=== PATIENT | female | born 1975 | race Caucasian/White ===

== ENCOUNTER 2016-06-22 09:48 | Inpatient (IN) | payer OTHER ==
[~2016-06-22] VITALS: Ht 165.1 cm; Wt 48.1 kg
[2016-06-22 14:10] VITALS: BP 97/62
[2016-06-22] MEDS ORDERED: POLYETHYLENE GLYCOL 17 GM PACKET PO PRN (15:30)
[2016-06-22] MEDS ORDERED: PLEASE ENTER ALLERGIES MC SCH ×2 (15:30)
[2016-06-22] MEDS ORDERED: PLEASE ENTER HEIGHT AND WEIGHT MC SCH (15:30)
[2016-06-22] MEDS ORDERED: ONDANSETRON 2MG/ML, 2ML IVP PRN (15:30)
[2016-06-22] MEDS: morphine SULFATE 10 MG/ML, 1ML IVPush PRN ×3 (15:43→22:53)
[2016-06-22] MEDS ORDERED: GABA300C10 PO (15:52)
[2016-06-22] MEDS ORDERED: FURO40TA6 PO (15:55)
[2016-06-22] MEDS ORDERED: AMIO100T4 PO (15:55)
[2016-06-22] MEDS ORDERED: POTA10TA PO (16:04)
[2016-06-22] MEDS ORDERED: SPIR50TA PO (16:04)
[2016-06-22] MEDS ORDERED: TOPI50TA35 PO (16:05)
[2016-06-22] MEDS ORDERED: MAGN400T26 PO (16:06)
[2016-06-22] MEDS ORDERED: OMEP-110 PO (16:07)
[2016-06-22] MEDS ORDERED: OXYC5CAP4 PO (16:10)
[2016-06-22 18:54] LABS: HEMOGLOBIN 10.1 g/dL (11.7-16.4)
[2016-06-22 19:24] VITALS: BP 91/52
[2016-06-22] MEDS: NS + 20MEQ KCL 1,000 ML IV SCH (19:36)
[2016-06-22] MEDS: MAGNESIUM OXIDE 400 MG TABLET PO SCH (21:00)
[2016-06-22] MEDS: POTASSIUM CHLORIDE 20 MEQ TAB.ER.PRT PO SCH (21:00)
[2016-06-22] MEDS: GABAPENTIN 300 MG CAPSULE PO SCH ×2 (21:00→22:53)
[2016-06-22] MEDS: AMIODARONE 200 MG TABLET PO SCH ×2 (21:00→22:53)
[2016-06-22] MEDS: OMEPRAZOLE 20 MG CAPSULE.DR PO SCH ×2 (21:00→22:54)
[2016-06-22] MEDS: FUROSEMIDE 40 MG TABLET PO SCH (21:00)
[2016-06-22] MEDS: SPIRONOLACTONE 50 MG TABLET PO SCH (21:00)
[2016-06-23 01:43] VITALS: BP 90/51
[2016-06-23] MEDS: morphine SULFATE 10 MG/ML, 1ML IVPush PRN ×6 (04:15→21:41)
[2016-06-23 05:35] LABS: ASPARTATE AMINO TRANSFERASE 19 U/L (15-37); BLOOD UREA NITROGEN 11 mg/dL (7-18)
[2016-06-23] MEDS: NS + 20MEQ KCL 1,000 ML IV SCH ×2 (08:36→18:00)
[2016-06-23 08:42] VITALS: BP 94/56
[2016-06-23] MEDS ORDERED: NS + 20MEQ KCL 1,000 ML IV SCH (09:00)
[2016-06-23] MEDS: GABAPENTIN 300 MG CAPSULE PO SCH ×3 (09:14→21:40)
[2016-06-23] MEDS: POTASSIUM CHLORIDE 20 MEQ TAB.ER.PRT PO SCH ×2 (09:14→21:40)
[2016-06-23] MEDS: TOPIRAMATE 25 MG TABLET PO SCH (09:14)
[2016-06-23] MEDS: SENNA/DOCUSATE TABLET PO SCH (09:14)
[2016-06-23] MEDS: OMEPRAZOLE 20 MG CAPSULE.DR PO SCH ×2 (09:14→21:40)
[2016-06-23] MEDS: MAGNESIUM OXIDE 400 MG TABLET PO SCH ×2 (09:15→21:40)
[2016-06-23 14:00] VITALS: BP 94/53
[2016-06-23 18:55] VITALS: BP 92/55
[2016-06-24 01:29] VITALS: BP 93/56
[2016-06-24] MEDS: morphine SULFATE 10 MG/ML, 1ML IVPush PRN ×7 (01:47→20:37)
[2016-06-24 05:08] LABS: HEMOGLOBIN 9.5 g/dL (11.7-16.4)
[2016-06-24 05:20] LABS: BLOOD UREA NITROGEN 8 mg/dL (7-18)
[2016-06-24] MEDS: NS + 20MEQ KCL 1,000 ML IV SCH (06:26)
[2016-06-24 07:00] VITALS: BP 94/52
[2016-06-24] MEDS: MAGNESIUM OXIDE 400 MG TABLET PO SCH ×2 (08:55→20:23)
[2016-06-24] MEDS: GABAPENTIN 300 MG CAPSULE PO SCH ×3 (08:55→20:23)
[2016-06-24] MEDS: POTASSIUM CHLORIDE 20 MEQ TAB.ER.PRT PO SCH ×2 (08:56→20:23)
[2016-06-24] MEDS: OMEPRAZOLE 20 MG CAPSULE.DR PO SCH ×2 (08:56→20:23)
[2016-06-24] MEDS: SENNA/DOCUSATE TABLET PO SCH (08:56)
[2016-06-24] MEDS: TOPIRAMATE 25 MG TABLET PO SCH (08:56)
[2016-06-24 13:28] VITALS: BP 92/52
[2016-06-24 18:26] VITALS: BP 92/54
[2016-06-25] MEDS: morphine SULFATE 10 MG/ML, 1ML IVPush PRN ×7 (00:07→21:51)
[2016-06-25 01:58] VITALS: BP 93/57
[2016-06-25 05:23] LABS: HEMOGLOBIN 9.7 g/dL (11.7-16.4)
[2016-06-25 05:40] LABS: BLOOD UREA NITROGEN 5 mg/dL (7-18)
[2016-06-25 07:03] VITALS: BP 91/54
[2016-06-25] MEDS: GABAPENTIN 300 MG CAPSULE PO SCH ×3 (09:39→21:37)
[2016-06-25] MEDS: MAGNESIUM OXIDE 400 MG TABLET PO SCH ×2 (09:39→21:37)
[2016-06-25] MEDS: SENNA/DOCUSATE TABLET PO SCH (09:39)
[2016-06-25] MEDS: OMEPRAZOLE 20 MG CAPSULE.DR PO SCH ×2 (09:39→21:37)
[2016-06-25] MEDS: TOPIRAMATE 25 MG TABLET PO SCH (09:39)
[2016-06-25] MEDS: POTASSIUM CHLORIDE 20 MEQ TAB.ER.PRT PO SCH (09:39)
[2016-06-25] MEDS ORDERED: SODIUM CHLORIDE 0.9% 1,000 ML IV SCH (11:30)
[2016-06-25 12:16] VITALS: BP 92/57
[2016-06-25] MEDS ORDERED: DEXTROSE 50%, 50ML SYRINGE IVPush PRN (13:30)
[2016-06-25] MEDS ORDERED: DEXTROSE 4 GM TAB.CHEW PO PRN (13:30)
[2016-06-25] MEDS ORDERED: GLUCAGON 1 MG IM PRN (13:30)
[2016-06-25] MEDS: POTASSIUM CHLORIDE 10 MEQ in D5%-0.45% NACL 1,000 ML IV SCH (15:45)
[2016-06-25 19:35] VITALS: BP 91/51
[2016-06-25] MEDS: SODIUM CHLORIDE FLUSH 10ML SYR IVF SCH (21:37)
[2016-06-26] MEDS: morphine SULFATE 10 MG/ML, 1ML IVPush PRN ×7 (01:22→21:56)
[2016-06-26] MEDS: POTASSIUM CHLORIDE 10 MEQ in D5%-0.45% NACL 1,000 ML IV SCH ×3 (01:23→21:56)
[2016-06-26 01:38] VITALS: BP 102/55
[2016-06-26 05:34] LABS: HEMOGLOBIN 9.8 g/dL (11.7-16.4)
[2016-06-26 06:22] LABS: BLOOD UREA NITROGEN 5 mg/dL (7-18)
[2016-06-26 06:53] VITALS: BP 89/56
[2016-06-26] MEDS: SENNA/DOCUSATE TABLET PO SCH (08:20)
[2016-06-26] MEDS: MAGNESIUM OXIDE 400 MG TABLET PO SCH ×2 (08:20→21:56)
[2016-06-26] MEDS: TOPIRAMATE 25 MG TABLET PO SCH (08:20)
[2016-06-26] MEDS: GABAPENTIN 300 MG CAPSULE PO SCH ×3 (08:20→21:56)
[2016-06-26] MEDS: OMEPRAZOLE 20 MG CAPSULE.DR PO SCH ×2 (08:20→21:56)
[2016-06-26] MEDS: SODIUM CHLORIDE FLUSH 10ML SYR IVF SCH ×2 (08:24→21:56)
[2016-06-26 12:30] VITALS: BP 86/50
[2016-06-26] MEDS ORDERED: VISIPAQUE 270 MG/ML, 50ML BOTTLE ONE (13:15)
[2016-06-26] MEDS ORDERED: TPN PER PHARMACY MC PRN (18:30)
[2016-06-26] MEDS: METOCLOPRAMIDE 5 MG/ML, 2ML IVPush SCH (18:56)
[2016-06-26 20:10] VITALS: BP 92/52
[2016-06-27] MEDS: METOCLOPRAMIDE 5 MG/ML, 2ML IVPush SCH ×4 (01:31→19:49)
[2016-06-27] MEDS: morphine SULFATE 10 MG/ML, 1ML IVPush PRN ×2 (01:32→04:58)
[2016-06-27 03:02] VITALS: BP 96/52
[2016-06-27] MEDS: POTASSIUM CHLORIDE 10 MEQ in D5%-0.45% NACL 1,000 ML IV SCH ×2 (04:58→18:07)
[2016-06-27 05:54] LABS: ASPARTATE AMINO TRANSFERASE 15 U/L (15-37); BLOOD UREA NITROGEN 4 mg/dL (7-18)
[2016-06-27 08:17] VITALS: BP 101/63
[2016-06-27] MEDS: OMEPRAZOLE 20 MG CAPSULE.DR PO SCH ×2 (08:39→19:49)
[2016-06-27] MEDS: TOPIRAMATE 25 MG TABLET PO SCH (08:40)
[2016-06-27] MEDS: MAGNESIUM OXIDE 400 MG TABLET PO SCH ×2 (08:40→19:50)
[2016-06-27] MEDS: SENNA/DOCUSATE TABLET PO SCH (08:40)
[2016-06-27] MEDS: ACETAMINOPHEN 325 MG TABLET PO PRN ×2 (08:41→19:50)
[2016-06-27] MEDS: SODIUM CHLORIDE FLUSH 10ML SYR IVF SCH ×2 (08:44→19:49)
[2016-06-27] MEDS: GABAPENTIN 300 MG CAPSULE PO SCH ×3 (08:49→19:50)
[2016-06-27] MEDS ORDERED: FILTER, DISP 1.2 MICRON FOR TPN/PVN IV PRN (10:00)
[2016-06-27] MEDS: MORPHINE SULFATE 4 MG/ML, 1ML IVPush PRN ×2 (13:06→18:23)
[2016-06-27 13:48] VITALS: BP 96/62
[2016-06-27] MEDS ORDERED: FAT EMULSIONS IV SCH (17:00)
[2016-06-27] MEDS ORDERED: DEXTROSE 70% IV SCH (17:00)
[2016-06-27] MEDS ORDERED: AMINO ACID 10% IV SCH (17:00)
[2016-06-27] MEDS ORDERED: TPN PER PHARMACY MC PRN (17:00)
[2016-06-27] MEDS ORDERED: DEXTROSE 50%, 50ML SYRINGE IVPush PRN (17:00)
[2016-06-27] MEDS ORDERED: DEXTROSE 10% 500 ML IV PRN (17:00)
[2016-06-27] MEDS ORDERED: [UNRECOGNIZED DRUG - OTHER] IV SCH (17:00)
[2016-06-27 20:19] VITALS: BP 98/66
[2016-06-28] MEDS: INSULIN REGULAR LOW DOSE Q6H X 48HRS SQ-INSULIN SCH ×5 (00:07→21:57)
[2016-06-28] MEDS: MORPHINE SULFATE 4 MG/ML, 1ML IVPush PRN ×4 (00:10→23:20)
[2016-06-28] MEDS: METOCLOPRAMIDE 5 MG/ML, 2ML IVPush SCH ×4 (03:39→21:47)
[2016-06-28] MEDS: ACETAMINOPHEN 325 MG TABLET PO PRN ×3 (03:41→21:47)
[2016-06-28] MEDS: DOCUSATE 100 MG CAPSULE PO PRN (03:49)
[2016-06-28 05:11] LABS: HEMOGLOBIN 9.5 g/dL (11.7-16.4)
[2016-06-28 05:22] LABS: BLOOD UREA NITROGEN 4 mg/dL (7-18)
[2016-06-28 06:11] VITALS: BP 97/60
[2016-06-28] MEDS: TOPIRAMATE 25 MG TABLET PO SCH (09:18)
[2016-06-28] MEDS: MAGNESIUM OXIDE 400 MG TABLET PO SCH ×2 (09:18→21:48)
[2016-06-28] MEDS: SENNA/DOCUSATE TABLET PO SCH (09:18)
[2016-06-28] MEDS: OMEPRAZOLE 20 MG CAPSULE.DR PO SCH ×2 (09:18→21:47)
[2016-06-28] MEDS: GABAPENTIN 300 MG CAPSULE PO SCH ×3 (09:18→21:47)
[2016-06-28] MEDS: SODIUM CHLORIDE FLUSH 10ML SYR IVF SCH ×2 (09:18→21:47)
[2016-06-28 13:36] VITALS: BP 101/61
[2016-06-28] MEDS: FILTER, DISP 1.2 MICRON FOR TPN/PVN IV PRN (16:59)
[2016-06-28] MEDS ORDERED: [UNRECOGNIZED DRUG - OTHER] IV SCH (17:00)
[2016-06-28] MEDS ORDERED: FAT EMULSIONS IV SCH ×2 (17:00)
[2016-06-28] MEDS ORDERED: [UNRECOGNIZED DRUG - OTHER] IV SCH (17:00)
[2016-06-28] MEDS ORDERED: DEXTROSE 70% IV SCH ×2 (17:00)
[2016-06-28] MEDS ORDERED: AMINO ACID 10% IV SCH ×2 (17:00)
[2016-06-28 19:25] VITALS: BP 101/68
[2016-06-29 01:59] VITALS: BP 102/67
[2016-06-29] MEDS: ACETAMINOPHEN 325 MG TABLET PO PRN ×3 (04:13→14:50)
[2016-06-29] MEDS: INSULIN REGULAR LOW DOSE Q6H X 48HRS SQ-INSULIN SCH ×3 (04:19→15:00)
[2016-06-29] MEDS: MORPHINE SULFATE 4 MG/ML, 1ML IVPush PRN (05:21)
[2016-06-29] MEDS: METOCLOPRAMIDE 5 MG/ML, 2ML IVPush SCH ×4 (05:21→22:47)
[2016-06-29 05:37] LABS: BLOOD UREA NITROGEN 5 mg/dL (7-18)
[2016-06-29 05:41] LABS: ASPARTATE AMINO TRANSFERASE 22 U/L (15-37)
[2016-06-29 05:43] LABS: HEMOGLOBIN 9.4 g/dL (11.7-16.4)
[2016-06-29 07:51] VITALS: BP 106/65
[2016-06-29] MEDS: SENNA/DOCUSATE TABLET PO SCH (09:28)
[2016-06-29] MEDS: SPIRONOLACTONE 25 MG TABLET PO SCH (09:28)
[2016-06-29] MEDS: TOPIRAMATE 25 MG TABLET PO SCH (09:28)
[2016-06-29] MEDS: GABAPENTIN 300 MG CAPSULE PO SCH ×3 (09:28→19:54)
[2016-06-29] MEDS: MAGNESIUM OXIDE 400 MG TABLET PO SCH ×2 (09:29→19:54)
[2016-06-29] MEDS: OMEPRAZOLE 20 MG CAPSULE.DR PO SCH ×2 (09:29→19:54)
[2016-06-29] MEDS: SODIUM CHLORIDE FLUSH 10ML SYR IVF SCH ×2 (09:29→19:54)
[2016-06-29 13:30] VITALS: BP 109/69
[2016-06-29] MEDS: FILTER, DISP 1.2 MICRON FOR TPN/PVN IV PRN (16:36)
[2016-06-29] MEDS ORDERED: [UNRECOGNIZED DRUG - OTHER] IV SCH (17:00)
[2016-06-29] MEDS ORDERED: DEXTROSE 70% IV SCH (17:00)
[2016-06-29] MEDS ORDERED: AMINO ACID 10% IV SCH (17:00)
[2016-06-29] MEDS ORDERED: FAT EMULSIONS IV SCH (17:00)
[2016-06-29] MEDS ORDERED: SODIUM BICARBONATE 4.2%, 5ML ONE (17:15)
[2016-06-29] MEDS ORDERED: LIDOCAINE 1%, 20ML ONE (17:15)
[2016-06-29 19:57] VITALS: BP 84/49
[2016-06-29] MEDS: DOCUSATE 100 MG CAPSULE PO PRN (19:59)
[2016-06-30 02:38] VITALS: BP 93/61
[2016-06-30] MEDS: METOCLOPRAMIDE 5 MG/ML, 2ML IVPush SCH ×3 (05:54→18:26)
[2016-06-30 06:43] LABS: BLOOD UREA NITROGEN 6 mg/dL (7-18)
[2016-06-30 08:00] VITALS: BP 93/62
[2016-06-30] MEDS: INSULIN REGULAR LOW DOSE QDAY SQ-INSULIN SCH (08:00)
[2016-06-30] MEDS: OMEPRAZOLE 20 MG CAPSULE.DR PO SCH ×2 (08:42→22:15)
[2016-06-30] MEDS: SENNA/DOCUSATE TABLET PO SCH (08:42)
[2016-06-30] MEDS: TOPIRAMATE 25 MG TABLET PO SCH (08:44)
[2016-06-30] MEDS: GABAPENTIN 300 MG CAPSULE PO SCH ×3 (08:44→22:15)
[2016-06-30] MEDS: MAGNESIUM OXIDE 400 MG TABLET PO SCH ×2 (08:44→22:15)
[2016-06-30] MEDS: SPIRONOLACTONE 25 MG TABLET PO SCH (08:45)
[2016-06-30] MEDS: SODIUM CHLORIDE FLUSH 10ML SYR IVF SCH ×2 (08:46→22:16)
[2016-06-30 12:59] VITALS: BP 96/61
[2016-06-30] MEDS ORDERED: DEXTROSE 70% IV SCH (17:00)
[2016-06-30] MEDS ORDERED: AMINO ACID 10% IV SCH (17:00)
[2016-06-30] MEDS ORDERED: FAT EMULSIONS IV SCH (17:00)
[2016-06-30] MEDS ORDERED: [UNRECOGNIZED DRUG - OTHER] IV SCH (17:00)
[2016-06-30] MEDS: FILTER, DISP 1.2 MICRON FOR TPN/PVN IV PRN (17:09)
[2016-06-30 20:32] VITALS: BP 92/56
[2016-07-01] MEDS: METOCLOPRAMIDE 5 MG/ML, 2ML IVPush SCH ×4 (00:30→21:04)
[2016-07-01 02:00] VITALS: BP 101/67
[2016-07-01 06:13] LABS: BLOOD UREA NITROGEN 6 mg/dL (7-18)
[2016-07-01 07:02] VITALS: BP 99/65
[2016-07-01] MEDS: INSULIN REGULAR LOW DOSE QDAY SQ-INSULIN SCH (08:00)
[2016-07-01] MEDS: MAGNESIUM OXIDE 400 MG TABLET PO SCH ×2 (08:02→21:03)
[2016-07-01] MEDS: SPIRONOLACTONE 25 MG TABLET PO SCH (08:02)
[2016-07-01] MEDS: TOPIRAMATE 25 MG TABLET PO SCH (08:02)
[2016-07-01] MEDS: GABAPENTIN 300 MG CAPSULE PO SCH ×3 (08:02→21:03)
[2016-07-01] MEDS: SENNA/DOCUSATE TABLET PO SCH (08:02)
[2016-07-01] MEDS: OMEPRAZOLE 20 MG CAPSULE.DR PO SCH ×2 (08:03→21:03)
[2016-07-01] MEDS: SODIUM CHLORIDE FLUSH 10ML SYR IVF SCH ×2 (08:03→19:45)
[2016-07-01 15:03] VITALS: BP 110/66
[2016-07-01] MEDS ORDERED: FAT EMULSIONS IV SCH (17:00)
[2016-07-01] MEDS ORDERED: [UNRECOGNIZED DRUG - OTHER] IV SCH (17:00)
[2016-07-01] MEDS ORDERED: AMINO ACID 10% IV SCH (17:00)
[2016-07-01] MEDS ORDERED: DEXTROSE 70% IV SCH (17:00)
[2016-07-01] MEDS: FILTER, DISP 1.2 MICRON FOR TPN/PVN IV PRN (17:39)
[2016-07-01 19:45] VITALS: BP 97/60
[2016-07-02 01:22] VITALS: BP 95/57
[2016-07-02] MEDS: METOCLOPRAMIDE 5 MG/ML, 2ML IVPush SCH ×4 (03:11→20:57)
[2016-07-02 07:27] VITALS: BP 86/55
[2016-07-02] MEDS: INSULIN REGULAR LOW DOSE QDAY SQ-INSULIN SCH (07:50)
[2016-07-02] MEDS: OMEPRAZOLE 20 MG CAPSULE.DR PO SCH ×2 (09:19→20:57)
[2016-07-02] MEDS: SODIUM CHLORIDE FLUSH 10ML SYR IVF SCH ×2 (09:19→21:02)
[2016-07-02] MEDS: TOPIRAMATE 25 MG TABLET PO SCH (09:19)
[2016-07-02] MEDS: SENNA/DOCUSATE TABLET PO SCH (09:19)
[2016-07-02] MEDS: SPIRONOLACTONE 25 MG TABLET PO SCH (09:19)
[2016-07-02] MEDS: MAGNESIUM OXIDE 400 MG TABLET PO SCH ×2 (09:19→20:57)
[2016-07-02] MEDS: GABAPENTIN 300 MG CAPSULE PO SCH ×3 (09:19→20:57)
[2016-07-02] MEDS ORDERED: morphine SULFATE 10 MG/ML, 1ML IVPush ONE (12:00)
[2016-07-02 13:35] VITALS: BP 96/60
[2016-07-02] MEDS ORDERED: MORPHINE SULFATE 4 MG/ML, 1ML IVPush ONE (16:30)
[2016-07-02 19:45] VITALS: BP 100/65
[2016-07-02] MEDS ORDERED: morphine SULFATE 10 MG/ML, 1ML IVPush PRN (21:30)
[2016-07-03 01:50] VITALS: BP 94/54
[2016-07-03] MEDS ORDERED: MORPHINE SULFATE 4 MG/ML, 1ML IVPush PRN (02:30)
[2016-07-03] MEDS: METOCLOPRAMIDE 5 MG/ML, 2ML IVPush SCH ×4 (03:29→22:02)
[2016-07-03 06:55] VITALS: BP 97/60
[2016-07-03] MEDS: GABAPENTIN 300 MG CAPSULE PO SCH ×3 (09:16→22:02)
[2016-07-03] MEDS: TOPIRAMATE 25 MG TABLET PO SCH (09:16)
[2016-07-03] MEDS: SENNA/DOCUSATE TABLET PO SCH (09:17)
[2016-07-03] MEDS: SPIRONOLACTONE 25 MG TABLET PO SCH (09:17)
[2016-07-03] MEDS: OMEPRAZOLE 20 MG CAPSULE.DR PO SCH ×2 (09:17→22:02)
[2016-07-03] MEDS: MAGNESIUM OXIDE 400 MG TABLET PO SCH ×2 (09:17→22:02)
[2016-07-03] MEDS: SODIUM CHLORIDE FLUSH 10ML SYR IVF SCH ×2 (09:18→22:02)
[2016-07-03] MEDS ORDERED: OXYcodone IR 5MG TABLET ONE (10:13)
[2016-07-03] MEDS: OXYcodone IR 5MG TABLET PO PRN ×4 (10:17→23:25)
[2016-07-03 12:40] VITALS: BP 91/56
[2016-07-03 18:34] VITALS: BP 100/67
[2016-07-03] MEDS: DOCUSATE 100 MG CAPSULE PO PRN (22:04)
[2016-07-04 01:01] VITALS: BP 92/55
[2016-07-04] MEDS: METOCLOPRAMIDE 5 MG/ML, 2ML IVPush SCH ×4 (03:45→19:35)
[2016-07-04] MEDS: OXYcodone IR 5MG TABLET PO PRN ×4 (03:45→19:34)
[2016-07-04 07:18] VITALS: BP 96/55
[2016-07-04] MEDS: OMEPRAZOLE 20 MG CAPSULE.DR PO SCH ×2 (08:51→19:34)
[2016-07-04] MEDS: SPIRONOLACTONE 25 MG TABLET PO SCH (08:51)
[2016-07-04] MEDS: SODIUM CHLORIDE FLUSH 10ML SYR IVF SCH ×2 (08:51→19:35)
[2016-07-04] MEDS: MAGNESIUM OXIDE 400 MG TABLET PO SCH ×2 (08:51→19:34)
[2016-07-04] MEDS: SENNA/DOCUSATE TABLET PO SCH (08:51)
[2016-07-04] MEDS: TOPIRAMATE 25 MG TABLET PO SCH (08:51)
[2016-07-04] MEDS: GABAPENTIN 300 MG CAPSULE PO SCH ×3 (08:51→19:34)
[2016-07-04 15:33] VITALS: BP 107/55
[2016-07-04 20:12] VITALS: BP 104/63
[2016-07-05] MEDS: OXYcodone IR 5MG TABLET PO PRN ×2 (02:32→10:34)
[2016-07-05] MEDS: METOCLOPRAMIDE 5 MG/ML, 2ML IVPush SCH ×2 (02:46→09:00)
[2016-07-05 02:55] VITALS: BP 99/64
[2016-07-05 07:25] VITALS: BP 99/51
[2016-07-05] MEDS: OMEPRAZOLE 20 MG CAPSULE.DR PO SCH (09:00)
[2016-07-05] MEDS: SENNA/DOCUSATE TABLET PO SCH (09:00)
[2016-07-05] MEDS: SPIRONOLACTONE 25 MG TABLET PO SCH (09:00)
[2016-07-05] MEDS: TOPIRAMATE 25 MG TABLET PO SCH (09:00)
[2016-07-05] MEDS: GABAPENTIN 300 MG CAPSULE PO SCH (09:00)
[2016-07-05] MEDS: MAGNESIUM OXIDE 400 MG TABLET PO SCH (09:00)
[2016-07-05] MEDS: SODIUM CHLORIDE FLUSH 10ML SYR IVF SCH (09:01)
[2016-07-05] MEDS ORDERED: OMNIPAQUE 350 MG/ML, 150 ML BOTTLE ONE (10:12)
== END 2016-07-05 14:13 | disposition home or self-care (01) | DRG 432 ==
LOC: 4NOR 13:42 → DCLOUNGE 07-05 13:55
PROVIDERS: ADMIT Internal Medicine; ATTEND Family Medicine
PROC: B548ZZA Ultrasonography of Superior Vena Cava, Guidance (ICD-10-PCS; 2016-06-23)
PROC: 02HV33Z Insertion of Infusion Device into Superior Vena Cava, Percutaneous Approach (ICD-10-PCS; 2016-06-26)
PROC: B5181ZA Fluoroscopy of Superior Vena Cava using Low Osmolar Contrast, Guidance (ICD-10-PCS; 2016-06-26)
PROC: 0W9G3ZZ Drainage of Peritoneal Cavity, Percutaneous Approach (ICD-10-PCS; principal; 2016-06-30)
DX: K70.31 Alcoholic cirrhosis of liver with ascites (principal); E43 Unspecified severe protein-calorie malnutrition; K56.60 Unspecified intestinal obstruction; R64 Cachexia; Z68.1 Body mass index [BMI] 19.9 or less, adult; K72.90 Hepatic failure, unspecified without coma; F32.9 Major depressive disorder, single episode, unspecified; Z80.8 Family history of malignant neoplasm of other organs or systems; E16.2 Hypoglycemia, unspecified; I48.0 Paroxysmal atrial fibrillation; R13.10 Dysphagia, unspecified; F10.20 Alcohol dependence, uncomplicated; Z87.01 Personal history of pneumonia (recurrent); Z93.1 Gastrostomy status; Z93.0 Tracheostomy status
CPT/HCPCS: 36415; 36569; 49083; 74000; 74020; 74250; 76705; 76937; 77001; 80048; 80053; 80076; 82962; 83605; 83735; 84100; 84134; 84478; 85025; 85610; 88112; 88305; J0610; J3475; J3480; J3490; Q9966; Q9967; C1751; J2270; J2765; J3420; J7030

== ENCOUNTER → 2016-09-30 | Outpatient (CLI) | payer OTHER ==
[~2016-09-30] MED LIST: ACID1GRA2 PO; AMIO100T4 PO; FENT1PAT76 TD; FURO40TA6 PO; GABA300C10 PO; LORA-445 PO; LORA0.5T PO; MAGN400T26 PO; OMEP-110 PO; OXYC5CAP4 PO; OXYC5TAB3 PO; POLY17PO5 PO; POTA10TA PO; POTA20PA8 PO; POTA20TA6 PO; SPIR50TA PO; SUCR1ORA2 PO; TOPI50TA35 PO
== END | disposition home or self-care (01) ==
LOC: CFH 06:50
PROVIDERS: ATTEND Internal Medicine Cardiovascular Disease
DX: I42.9 Cardiomyopathy, unspecified (principal); F10.10 Alcohol abuse, uncomplicated; Z86.74 Personal history of sudden cardiac arrest; Z87.891 Personal history of nicotine dependence
CPT/HCPCS: 93306

== ENCOUNTER → 2016-10-11 | Outpatient (CLI) | payer OTHER | END | disposition home or self-care (01) | LOC: PETCFH 10:22 | PROVIDERS: ATTEND Internal Medicine Gastroenterology | DX: K31.84 Gastroparesis (principal); R18.8 Other ascites; I47.2 Ventricular tachycardia; I48.0 Paroxysmal atrial fibrillation; E44.0 Moderate protein-calorie malnutrition; F10.10 Alcohol abuse, uncomplicated | CPT/HCPCS: 78264; A9541 ==

== ENCOUNTER → 2017-01-18 | Outpatient (CLI) | payer OTHER ==
[~2017-01-18] MED LIST changes: -ACID1GRA2 PO; +ACID1GRA3 PO; +OXYC5CAP2 PO; -OXYC5CAP4 PO; +POTA20PA25 PO; -POTA20PA8 PO; -SUCR1ORA2 PO; +SUCR1ORA5 PO
== END | disposition home or self-care (01) ==
LOC: CFH 09:20
PROVIDERS: ATTEND Internal Medicine Gastroenterology
DX: K70.9 Alcoholic liver disease, unspecified (principal); R16.0 Hepatomegaly, not elsewhere classified
CPT/HCPCS: 74022

== ENCOUNTER 2017-04-19 19:43 | Inpatient (IN) | payer OTHER ==
[~2017-04-19] VITALS: Ht 165.1 cm; Wt 53.5 kg
[2017-04-19 20:55] LABS: MEAN CORPUSCULAR HEMOGLOBIN 33.4 pg (27.0-34.8); MEAN CORPUSCULAR HGB CONC 33.7 g/dL (32.4-35.8); MEAN CORPUSCULAR VOLUME 99.1 fL (80-100); MEAN PLATELET VOLUME 7.8 fL (7.4-10.4); PLATELET COUNT 289 x10^3/uL (130-400); RED BLOOD COUNT 2.16 x10^6/uL (3.82-5.3); RED CELL DISTRIBUTION WIDTH 14.6 % (9.6-15.2)
[2017-04-19 21:05] LABS: ALANINE AMINOTRANSFERASE 68 U/L (12-78); ALBUMIN 2.3 g/dL (3.4-5.0); ANION GAP 11 mmol/L (5-15); CALCIUM 8.3 mg/dL (8.5-10.1); CHLORIDE 82 mmol/L (98-107); CREATININE 0.91 mg/dL (0.55-1.02)
[2017-04-19 21:08] LABS: ALKALINE PHOSPHATASE 145 U/L (45-117); BILIRUBIN,TOTAL 0.8 mg/dL (0.2-1.0); TOTAL PROTEIN 6.5 g/dL (6.4-8.2)
[2017-04-19 21:11] LABS: MD YES
[2017-04-19 21:13] LABS: ANISOCYTOSIS 1+; BAND#(MANUAL) 0.16 x10^3/uL; BANDS%(MANUAL) 1 % (0-7); EOS#(MANUAL) 0.32 x10^3/uL (0.0-0.4); EOS% (MANUAL) 2 % (1-7); HYPOCHROMIA 1+; LYMPH#(MANUAL) 3.18 x10^3/uL (1-3.4); LYMPHS% (MANUAL) 20 % (22-44); MONOS% (MANUAL) 5 % (2-9); MYELOCYTES# (MANUAL) 0.16 x10^3/uL (0-0); MYELOCYTES% (MANUAL) 1 % (0-0); POLYCHROMASIA 1+; SEG#(MANUAL) 11.29 x10^3/uL (1.8-6.8); SEGS% (MANUAL) 71 % (42-75)
[2017-04-19 21:14] LABS: <PLATELET ESTIMATE> ADEQUATE; <PLT MORPHOLOGY> NORMAL PLT MORPH
[2017-04-19] MEDS ORDERED: PANTOPRAZOLE 80 MG in SODIUM CHLORIDE 0.9% 50 ML IVPB ONE (21:47)
[2017-04-19] MEDS ORDERED: POTASSIUM CHLORIDE 40 MEQ in SODIUM CHLORIDE 0.9% 500 ML IV ONE (22:00)
[2017-04-19] MEDS ORDERED: FOLI0.8T2 PO (22:04)
[2017-04-19 22:07] LABS: INTERNATIONAL NORMALIZED RATIO 1.64 (0.93-1.1); PROTHROMBIN TIME 16.9 Seconds (9.6-11.5)
[2017-04-19 23:34] VITALS: BP 84/44
[2017-04-19 23:35] VITALS: BP 84/44
[2017-04-19 23:50] VITALS: BP 74/42
[2017-04-20] VITALS (14 sets, daily range): BP systolic 75–93; BP diastolic 38–57
[2017-04-20] MEDS ORDERED: FENTANYL PF 100 MCG/2ML IV ONE (00:30)
[2017-04-20] MEDS ORDERED: FENTANYL PF 100 MCG/2ML ONE (00:31)
[2017-04-20] MEDS: PANTOPRAZOLE 80 MG in SODIUM CHLORIDE 0.9% 100 ML IV SCH ×6 (01:27→19:43)
[2017-04-20] MEDS ORDERED: SODIUM CHLORIDE 0.9% 1,000ML IVBOLUS ONE ×2 (01:30→02:30)
[2017-04-20] MEDS ORDERED: ALBUMIN HUMAN 25% 100 ML IV ONE (03:00)
[2017-04-20 03:22] LABS: FIO2 ROOM AIR %
[2017-04-20] MEDS ORDERED: MORPHINE SULFATE 4 MG/ML, 1ML ONE (04:59)
[2017-04-20] MEDS ORDERED: ONDANSETRON ODT 4 MG PO PRN (05:00)
[2017-04-20] MEDS ORDERED: HEPARIN 5,000 UNITS/ML, 1ML SQ SCH (05:00)
[2017-04-20] MEDS ORDERED: MORPHINE SULFATE 4 MG/ML, 1ML IVPush PRN (05:00)
[2017-04-20] MEDS ORDERED: NITROGLYCERIN 0.4 MG BOTTLE (25 TABS) SL PRN (05:00)
[2017-04-20] MEDS ORDERED: ACETAMINOPHEN 325 MG TABLET PO PRN (05:00)
[2017-04-20] MEDS ORDERED: ONDANSETRON 2MG/ML, 2ML IVPush PRN ×2 (05:00→08:00)
[2017-04-20] MEDS ORDERED: morphine SULFATE 10 MG/ML, 1ML IVPush PRN (05:00)
[2017-04-20] MEDS ORDERED: OMNIPAQUE 350 MG/ML, 100ML BOTTLE ONE (05:37)
[2017-04-20 06:01] LABS: INTERNATIONAL NORMALIZED RATIO 1.65 (0.93-1.1)
[2017-04-20 06:09] LABS: CHLORIDE 88 mmol/L (98-107)
[2017-04-20] MEDS ORDERED: HEPARIN 5,000 UNITS/ML, 1ML ONE (06:09)
[2017-04-20 06:11] LABS: MEAN CORPUSCULAR HEMOGLOBIN 31.6 pg (27.0-34.8); MEAN CORPUSCULAR HGB CONC 33.5 g/dL (32.4-35.8); MEAN CORPUSCULAR VOLUME 94.1 fL (80-100); MEAN PLATELET VOLUME 7.6 fL (7.4-10.4); PLATELET COUNT 184 x10^3/uL (130-400); RED BLOOD COUNT 2.24 x10^6/uL (3.82-5.3); RED CELL DISTRIBUTION WIDTH 18.2 % (9.6-15.2)
[2017-04-20] MEDS: SODIUM CHLORIDE 0.9% 1,000 ML IV SCH (06:17)
[2017-04-20 06:23] LABS: ALANINE AMINOTRANSFERASE 41 U/L (12-78); ALBUMIN 2.3 g/dL (3.4-5.0); ALKALINE PHOSPHATASE 97 U/L (45-117); ANION GAP 9 mmol/L (5-15); BILIRUBIN,TOTAL 2.2 mg/dL (0.2-1.0); CALCIUM 7.1 mg/dL (8.5-10.1); CHOL/HDL RATIO 2.3; CHOLESTEROL, TOTAL 67 mg/dL (140-239); CREATININE 0.63 mg/dL (0.55-1.02); GAMMA GLUTAMYL TRANSPEPTIDASE 150 U/L (5-55); HDL CHOL % 43 % (28-40); HDL CHOLESTEROL (DIRECT) 29 mg/dL (40-60); LDL CHOLESTEROL,CALCULATED 27 mg/dL (54-169); LDL/HDL RATIO 0.9 (0.5-3.0); TOTAL PROTEIN 5.3 g/dL (6.4-8.2); TRIGLYCERIDES 53 mg/dL (50-200); VLDL CHOLESTEROL 11 mg/dL (0-25)
[2017-04-20 06:44] LABS: BASOPHILS # (AUTO) 0.03 x10^3/uL (0-0.1); BASOPHILS % (AUTO) 0 % (0-1); EOSINOPHILS # (AUTO) 0.09 x10^3/uL (0-0.4); EOSINOPHILS % (AUTO) 1 % (1-7); LYMPHOCYTES # (AUTO) 1.36 x10^3/uL (1-3.4); LYMPHOCYTES % (AUTO) 17 % (22-44); MD MORPH REVIEW ONLY; MONOCYTES # (AUTO) 0.49 x10^3/uL (0.2-0.8); MONOCYTES % (AUTO) 6 % (2-9); NEUTROPHILS # (AUTO) 6.07 x10^3/uL (1.8-6.8); NEUTROPHILS % (AUTO) 76 % (42-75)
[2017-04-20 06:45] LABS: ANISOCYTOSIS 1+
[2017-04-20 06:46] LABS: POLYCHROMASIA 1+
[2017-04-20 06:48] LABS: MICROCYTOSIS 1+; OVALOCYTES 1+
[2017-04-20 06:49] LABS: <PLATELET ESTIMATE> ADEQUATE; <PLT MORPHOLOGY> NORMAL PLT MORPH
[2017-04-20] MEDS ORDERED: BISACODYL 10 MG SUPP PR PRN (09:00)
[2017-04-20 10:00] LABS: MICROSCOPIC INDICATED
[2017-04-20 10:11] LABS: CULTURE INDICATED? YES
[2017-04-20] MEDS ORDERED: HYDROmorphone 2 MG/ML, 1ML ONE ×2 (11:24→12:20)
[2017-04-20] MEDS ORDERED: CEFTRIAXONE 1,000 MG in SODIUM CHLORIDE 0.9% 50 ML IV SCH (13:00)
[2017-04-20] MEDS: MORPHINE SULFATE 4 MG/ML, 1ML IVPush PRN ×3 (13:41→21:23)
[2017-04-20] MEDS: CEFTRIAXONE 1,000 MG in SODIUM CHLORIDE 0.9% 50 ML IV SCH (14:06)
[2017-04-20] MEDS ORDERED: DOCUSATE 100 MG CAPSULE PO PRN (21:00)
[2017-04-20 23:27] LABS: BASOPHILS # (AUTO) 0.16 x10^3/uL (0-0.1); BASOPHILS % (AUTO) 1 % (0-1); EOSINOPHILS # (AUTO) 0.29 x10^3/uL (0-0.4); EOSINOPHILS % (AUTO) 3 % (1-7); LYMPHOCYTES # (AUTO) 2.22 x10^3/uL (1-3.4); LYMPHOCYTES % (AUTO) 20 % (22-44); MD NO; MEAN CORPUSCULAR HEMOGLOBIN 30.5 pg (27.0-34.8); MEAN CORPUSCULAR HGB CONC 33.4 g/dL (32.4-35.8); MEAN CORPUSCULAR VOLUME 91.3 fL (80-100); MEAN PLATELET VOLUME 7.6 fL (7.4-10.4); MONOCYTES # (AUTO) 0.57 x10^3/uL (0.2-0.8); MONOCYTES % (AUTO) 5 % (2-9); NEUTROPHILS # (AUTO) 8.02 x10^3/uL (1.8-6.8); NEUTROPHILS % (AUTO) 71 % (42-75); PLATELET COUNT 227 x10^3/uL (130-400); RED BLOOD COUNT 3.52 x10^6/uL (3.82-5.3); RED CELL DISTRIBUTION WIDTH 19.1 % (9.6-15.2)
[2017-04-20 23:32] LABS: ANION GAP 9 mmol/L (5-15); CALCIUM 7.9 mg/dL (8.5-10.1); CHLORIDE 93 mmol/L (98-107); CREATININE 0.62 mg/dL (0.55-1.02)
[2017-04-21] MEDS: MORPHINE SULFATE 4 MG/ML, 1ML IVPush PRN ×6 (00:43→22:23)
[2017-04-21] MEDS: SODIUM CHLORIDE 0.9% 1,000 ML IV SCH (02:36)
[2017-04-21] MEDS: PANTOPRAZOLE 80 MG in SODIUM CHLORIDE 0.9% 100 ML IV SCH ×2 (02:36→11:30)
[2017-04-21 04:08] VITALS: BP 93/58
[2017-04-21] MEDS ORDERED: POTASSIUM CHLORIDE 40 MEQ in LACTATED RINGERS 1,000 ML IV SCH (06:30)
[2017-04-21 07:15] VITALS: BP 93/51
[2017-04-21] MEDS ORDERED: MIDAZOLAM 1 MG/ML, 2ML ONE (08:26)
[2017-04-21] MEDS ORDERED: FENTANYL PF 100 MCG/2ML ONE (08:26)
[2017-04-21] MEDS ORDERED: HYDROmorphone 1 MG/ML, 1ML IV PRN (09:00)
[2017-04-21] MEDS ORDERED: ONDANSETRON 2MG/ML, 2ML IVPush PRN (09:00)
[2017-04-21] MEDS ORDERED: PROMETHAZINE 25 MG/ML, 1ML IV PRN (09:00)
[2017-04-21] MEDS ORDERED: OXYcodone 5 MG/5 ML ORAL.SOL UDC PO PRN (09:00)
[2017-04-21] MEDS ORDERED: MIDAZOLAM 1 MG/ML, 2ML IV PRN (09:00)
[2017-04-21] MEDS ORDERED: EPHEDRINE 50 MG/ML, 1ML IVPush PRN (09:00)
[2017-04-21] MEDS ORDERED: MEPERIDINE/PF 25MG/0.5ML IVPush PRN (09:00)
[2017-04-21] MEDS ORDERED: FENTANYL PF 100 MCG/2ML IV PRN (09:00)
[2017-04-21 12:22] VITALS: BP 89/66
[2017-04-21] MEDS: POTASSIUM CHLORIDE 20 MEQ TAB.ER.PRT PO SCH ×3 (12:50→19:43)
[2017-04-21] MEDS: CEFTRIAXONE 1,000 MG in SODIUM CHLORIDE 0.9% 50 ML IV SCH (13:58)
[2017-04-21] MEDS ORDERED: PROPOFOL 10 MG/ML, 20ML ONE (15:29)
[2017-04-21] MEDS ORDERED: PROPOFOL 10 MG/ML, 50ML ONE (15:29)
[2017-04-21] MEDS ORDERED: EPHEDRINE 50 MG/ML, 1ML ONE (15:29)
[2017-04-21 19:40] VITALS: BP 93/58
[2017-04-22] MEDS: MORPHINE SULFATE 4 MG/ML, 1ML IVPush PRN ×5 (00:21→11:31)
[2017-04-22 03:07] VITALS: BP 86/57
[2017-04-22 06:10] LABS: ANION GAP 8 mmol/L (5-15); CALCIUM 7.8 mg/dL (8.5-10.1); CHLORIDE 102 mmol/L (98-107)
[2017-04-22 06:14] LABS: ALANINE AMINOTRANSFERASE 34 U/L (12-78); ALKALINE PHOSPHATASE 119 U/L (45-117); BILIRUBIN,TOTAL 1.6 mg/dL (0.2-1.0); CREATININE 0.43 mg/dL (0.55-1.02); TOTAL PROTEIN 5.4 g/dL (6.4-8.2)
[2017-04-22] MEDS ORDERED: MAGNESIUM SULFATE PMX 2GM/50ML 50 ML IV ONE (07:00)
[2017-04-22 07:15] VITALS: BP 94/59
[2017-04-22] MEDS ORDERED: DICY10CA53 PO (11:56)
[2017-04-22] MEDS ORDERED: DICYCLOMINE 10 MG CAPSULE PO PRN (12:00)
[2017-04-22 13:06] VITALS: BP 92/57
== END 2017-04-22 15:20 | disposition home or self-care (01) | DRG 441 ==
LOC: ED 23:10 → EDIP 23:15 → 4EST 04-20 12:19
PROVIDERS: ADMIT Surgery; ATTEND Surgery
PROC: 30233L1 Transfusion of Nonautologous Fresh Plasma into Peripheral Vein, Percutaneous Approach (ICD-10-PCS; principal; 2017-04-19)
PROC: 30233N1 Transfusion of Nonautologous Red Blood Cells into Peripheral Vein, Percutaneous Approach (ICD-10-PCS; 2017-04-19)
PROC: 30233K1 Transfusion of Nonautologous Frozen Plasma into Peripheral Vein, Percutaneous Approach (ICD-10-PCS; 2017-04-19)
PROC: 0DB58ZX Excision of Esophagus, Via Natural or Artificial Opening Endoscopic, Diagnostic (ICD-10-PCS; 2017-04-21)
DX: K76.6 Portal hypertension (principal); I46.9 Cardiac arrest, cause unspecified; K72.90 Hepatic failure, unspecified without coma; E87.1 Hypo-osmolality and hyponatremia; E83.39 Other disorders of phosphorus metabolism; K31.84 Gastroparesis; D62 Acute posthemorrhagic anemia; I47.2 Ventricular tachycardia; K92.2 Gastrointestinal hemorrhage, unspecified; K70.30 Alcoholic cirrhosis of liver without ascites; E73.9 Lactose intolerance, unspecified; E87.6 Hypokalemia; F10.10 Alcohol abuse, uncomplicated; F32.9 Major depressive disorder, single episode, unspecified; G89.29 Other chronic pain; Z72.0 Tobacco use; F41.9 Anxiety disorder, unspecified; K31.89 Other diseases of stomach and duodenum
CPT/HCPCS: 36415; 36430; 36600; 74177; 80048; 80053; 80061; 81001; 81025; 82140; 82803; 82977; 83036; 83690; 83735; 84100; 84443; 85014; 85018; 85025; 85610; 85730; 86850; 86900; 86923; 87086; 88305; 93005; 96365; 96368; 96372; 96375; J0696; J1644; J2250; J2704; J3010; J3480; P9047; Q9967; C9113; J3475; J7030; J7040; J7120; P9016; P9017

== ENCOUNTER 2017-05-04 12:04 | Inpatient (IN) | payer OTHER ==
[2017-05-04] VITALS (10 sets, daily range): BP systolic 82–97; BP diastolic 41–57
[~2017-05-04] VITALS: Ht 165.1 cm; Wt 47.8 kg
[~2017-05-04 12:04] MED LIST changes: +DICY10CA53 PO; +FOLI0.8T2 PO
[2017-05-04] MEDS ORDERED: SODIUM CHLORIDE FLUSH 10ML SYR IVF ONE (12:30)
[2017-05-04] MEDS ORDERED: SODIUM CHLORIDE 0.9% 1,000ML IVBOLUS ONE (12:30)
[2017-05-04 12:47] LABS: BASOPHILS # (AUTO) 0.04 x10^3/uL (0-0.1); BASOPHILS % (AUTO) 0 % (0-1); EOSINOPHILS # (AUTO) 0.03 x10^3/uL (0-0.4); EOSINOPHILS % (AUTO) 0 % (1-7); LYMPHOCYTES # (AUTO) 2.64 x10^3/uL (1-3.4); LYMPHOCYTES % (AUTO) 17 % (22-44); MD NO; MEAN CORPUSCULAR HEMOGLOBIN 32.3 pg (27.0-34.8); MEAN CORPUSCULAR HGB CONC 34.1 g/dL (32.4-35.8); MEAN CORPUSCULAR VOLUME 94.8 fL (80-100); MEAN PLATELET VOLUME 7.6 fL (7.4-10.4); MONOCYTES # (AUTO) 0.52 x10^3/uL (0.2-0.8); MONOCYTES % (AUTO) 3 % (2-9); NEUTROPHILS # (AUTO) 12.57 x10^3/uL (1.8-6.8); NEUTROPHILS % (AUTO) 80 % (42-75); PLATELET COUNT 264 x10^3/uL (130-400); RED BLOOD COUNT 2.43 x10^6/uL (3.82-5.3); RED CELL DISTRIBUTION WIDTH 18.4 % (9.6-15.2)
[2017-05-04 12:56] LABS: ALANINE AMINOTRANSFERASE 98 U/L (12-78); ALBUMIN 2.4 g/dL (3.4-5.0); ANION GAP 13 mmol/L (5-15); CALCIUM 7.5 mg/dL (8.5-10.1); CHLORIDE 77 mmol/L (98-107)
[2017-05-04 12:58] LABS: ALKALINE PHOSPHATASE 231 U/L (45-117); BILIRUBIN,TOTAL 1.5 mg/dL (0.2-1.0)
[2017-05-04] MEDS ORDERED: PANTOPRAZOLE 80 MG in SODIUM CHLORIDE 0.9% 100 ML IV SCH ×2 (13:07→16:00)
[2017-05-04] MEDS ORDERED: SODIUM CHLORIDE 0.9% 1,000 ML IV ONE (13:07)
[2017-05-04] MEDS ORDERED: PANTOPRAZOLE 80 MG in SODIUM CHLORIDE 0.9% 50 ML IVPB ONE ×2 (13:07→16:00)
[2017-05-04] MEDS ORDERED: ESOMEPRAZOLE SODIUM 80 MG in SODIUM CHLORIDE 0.9% 100 ML IV ONE (13:15)
[2017-05-04 13:26] LABS: INTERNATIONAL NORMALIZED RATIO 1.49 (0.93-1.1); PROTHROMBIN TIME 15.4 Seconds (9.6-11.5)
[2017-05-04] MEDS ORDERED: ESOMEPRAZOLE SODIUM 80 MG in SODIUM CHLORIDE 0.9% 100 ML IVPush SCH (13:30)
[2017-05-04] MEDS ORDERED: POTASSIUM CHLORIDE 20 MEQ TAB.ER.PRT ONE (13:39)
[2017-05-04] MEDS ORDERED: OCTREOTIDE 500 MCG in SODIUM CHLORIDE 0.9% 249 ML IV PRN (14:12)
[2017-05-04] MEDS ORDERED: OCTREOTIDE 100MCG/ML, 1ML (0.1MG/ML) ONE (14:26)
[2017-05-04] MEDS ORDERED: MORPHINE SULFATE 4 MG/ML, 1ML ONE (14:27)
[2017-05-04] MEDS ORDERED: POTASSIUM CHLORIDE 20 MEQ TAB.ER.PRT PO ONE ×2 (14:30→21:00)
[2017-05-04] MEDS ORDERED: POTASSIUM CHLORIDE 40 MEQ in SODIUM CHLORIDE 0.9% 500 ML IV ONE (14:30)
[2017-05-04] MEDS ORDERED: OCTREOTIDE 100MCG/ML, 1ML (0.1MG/ML) IV ONE (14:30)
[2017-05-04] MEDS ORDERED: POTA20TA14 PO (15:18)
[2017-05-04] MEDS ORDERED: VITAMIN A (15:18)
[2017-05-04] MEDS ORDERED: VITAMIN D (15:18)
[2017-05-04] MEDS: NS + 40MEQ KCL 1,000 ML IV SCH (16:15)
[2017-05-04] MEDS: OCTREOTIDE 500 MCG in SODIUM CHLORIDE 0.9% 249 ML IV SCH (16:30)
[2017-05-04] MEDS ORDERED: ONDANSETRON ODT 4 MG PO PRN (16:30)
[2017-05-04] MEDS: PANTOPRAZOLE 80 MG in SODIUM CHLORIDE 0.9% 100 ML IV SCH (16:30)
[2017-05-04] MEDS ORDERED: ONDANSETRON 2MG/ML, 2ML IVPush PRN (16:30)
[2017-05-04] MEDS ORDERED: MAGNESIUM SULFATE PMX 4GM/100M 100 ML IV ONE (18:00)
[2017-05-04] MEDS ORDERED: CEFTRIAXONE PMX 1GM/50ML 50 ML IV SCH (18:00)
[2017-05-04] MEDS ORDERED: PROMETHAZINE 25 MG/ML, 1ML IM PRN (19:30)
[2017-05-04] MEDS ORDERED: GOLYTELY 4,000ML ORAL.SOL PO ONE (20:00)
[2017-05-04] MEDS ORDERED: morphine SULFATE ORAL.CONC 20 MG/ML PO PRN (21:00)
[2017-05-04] MEDS: MORPHINE SULFATE 4 MG/ML, 1ML IVPush PRN (21:15)
[2017-05-05 00:03] LABS: MICROSCOPIC NOT IND
[2017-05-05 00:09] LABS: CULTURE INDICATED? NO
[2017-05-05 00:10] LABS: HCG UR SG 1.011 (1.003-1.030)
[2017-05-05 01:54] VITALS: BP 91/51
[2017-05-05] MEDS: MORPHINE SULFATE 4 MG/ML, 1ML IVPush PRN ×5 (02:10→21:21)
[2017-05-05 02:36] LABS: MEAN CORPUSCULAR HGB CONC 33.9 g/dL (32.4-35.8); MEAN CORPUSCULAR VOLUME 91.4 fL (80-100); MEAN PLATELET VOLUME 7.4 fL (7.4-10.4); PLATELET COUNT 185 x10^3/uL (130-400); RED BLOOD COUNT 2.86 x10^6/uL (3.82-5.3); RED CELL DISTRIBUTION WIDTH 18.5 % (9.6-15.2)
[2017-05-05 02:43] LABS: ALANINE AMINOTRANSFERASE 67 U/L (12-78); ANION GAP 9 mmol/L (5-15); CHLORIDE 94 mmol/L (98-107)
[2017-05-05 02:44] LABS: INTERNATIONAL NORMALIZED RATIO 1.58 (0.93-1.1); PROTHROMBIN TIME 16.3 Seconds (9.6-11.5)
[2017-05-05 02:46] LABS: ALKALINE PHOSPHATASE 179 U/L (45-117); CREATININE 0.64 mg/dL (0.55-1.02); TOTAL PROTEIN 5.8 g/dL (6.4-8.2)
[2017-05-05 02:59] LABS: BASOPHILS # (AUTO) 0.02 x10^3/uL (0-0.1); BASOPHILS % (AUTO) 0 % (0-1); EOSINOPHILS # (AUTO) 0.05 x10^3/uL (0-0.4); EOSINOPHILS % (AUTO) 1 % (1-7); LYMPHOCYTES # (AUTO) 2.15 x10^3/uL (1-3.4); LYMPHOCYTES % (AUTO) 32 % (22-44); MD MORPH REVIEW ONLY; MONOCYTES # (AUTO) 0.36 x10^3/uL (0.2-0.8); MONOCYTES % (AUTO) 5 % (2-9); NEUTROPHILS # (AUTO) 4.19 x10^3/uL (1.8-6.8); NEUTROPHILS % (AUTO) 62 % (42-75)
[2017-05-05 03:01] LABS: ANISOCYTOSIS 1+
[2017-05-05 03:03] LABS: <PLATELET ESTIMATE> ADEQUATE; <PLT MORPHOLOGY> NORMAL PLT MORPH; OVALOCYTES 1+; POLYCHROMASIA 1+
[2017-05-05] MEDS: NS + 40MEQ KCL 1,000 ML IV SCH ×2 (03:06→15:45)
[2017-05-05] MEDS: PANTOPRAZOLE 80 MG in SODIUM CHLORIDE 0.9% 100 ML IV SCH (04:02)
[2017-05-05] MEDS: OCTREOTIDE 500 MCG in SODIUM CHLORIDE 0.9% 249 ML IV SCH (04:38)
[2017-05-05] MEDS: PHYTONADIONE 10 MG/ML, 1ML SQ SCH (09:04)
[2017-05-05] MEDS ORDERED: PROPOFOL 10 MG/ML, 20ML ONE (10:00)
[2017-05-05] MEDS ORDERED: SUCCINYLCHOLINE 20 MG/ML, 10ML ONE (10:00)
[2017-05-05] MEDS ORDERED: MIDAZOLAM 1 MG/ML, 2ML ONE (10:02)
[2017-05-05] MEDS ORDERED: FENTANYL PF 100 MCG/2ML ONE (10:02)
[2017-05-05] MEDS ORDERED: LORazepam 2 MG/ML, 1ML IVPush PRN (11:00)
[2017-05-05] MEDS ORDERED: FENTANYL PF 100 MCG/2ML IV PRN (11:00)
[2017-05-05] MEDS ORDERED: MEPERIDINE/PF 25MG/0.5ML IVPush PRN (11:00)
[2017-05-05] MEDS ORDERED: HYDROmorphone 1 MG/ML, 1ML IV PRN (11:00)
[2017-05-05] MEDS ORDERED: OXYcodone 5 MG/5 ML ORAL.SOL UDC PO PRN (11:00)
[2017-05-05] MEDS ORDERED: ONDANSETRON 2MG/ML, 2ML IVPush PRN (11:00)
[2017-05-05] MEDS ORDERED: PROMETHAZINE 25 MG/ML, 1ML IV PRN (11:00)
[2017-05-05 11:15] VITALS: BP 97/57
[2017-05-05 13:00] VITALS: BP 94/58
[2017-05-05] MEDS: SUCRALFATE 1 GM/10 ML UDC PO SCH ×2 (15:44→20:06)
[2017-05-05 18:43] VITALS: BP 97/63
[2017-05-05] MEDS: OMEPRAZOLE 20 MG CAPSULE.DR PO SCH (20:06)
[2017-05-05] MEDS ORDERED: CEFTRIAXONE 1,000 MG in SODIUM CHLORIDE 0.9% 50 ML IV SCH (21:00)
[2017-05-06] MEDS: MORPHINE SULFATE 4 MG/ML, 1ML IVPush PRN ×5 (01:25→22:01)
[2017-05-06] MEDS: NS + 40MEQ KCL 1,000 ML IV SCH ×2 (01:26→12:58)
[2017-05-06 01:33] VITALS: BP 93/56
[2017-05-06] MEDS: SUCRALFATE 1 GM/10 ML UDC PO SCH ×4 (05:40→20:37)
[2017-05-06 08:17] VITALS: BP 100/66
[2017-05-06] MEDS: PHYTONADIONE 10 MG/ML, 1ML SQ SCH (08:30)
[2017-05-06] MEDS: OMEPRAZOLE 20 MG CAPSULE.DR PO SCH ×2 (08:30→20:38)
[2017-05-06] MEDS ORDERED: SIMETHICONE DROPS 40 MG/0.6 ML BOTTLE PO PRN (10:30)
[2017-05-06 11:32] LABS: ABSOLUTE RETICS # 0.088 x10^6/uL (0.5-2.5); RETICULOCYTE COUNT % 3.17 % (0.5-1.5)
[2017-05-06 11:34] LABS: INTERNATIONAL NORMALIZED RATIO 1.24 (0.93-1.1); PROTHROMBIN TIME 12.8 Seconds (9.6-11.5)
[2017-05-06 11:35] LABS: MEAN CORPUSCULAR HEMOGLOBIN 31.7 pg (27.0-34.8); MEAN CORPUSCULAR HGB CONC 33.5 g/dL (32.4-35.8); MEAN CORPUSCULAR VOLUME 94.6 fL (80-100); MEAN PLATELET VOLUME 7.6 fL (7.4-10.4); PLATELET COUNT 194 x10^3/uL (130-400); RED BLOOD COUNT 2.78 x10^6/uL (3.82-5.3); RED CELL DISTRIBUTION WIDTH 20.5 % (9.6-15.2)
[2017-05-06 11:38] LABS: ALBUMIN 1.9 g/dL (3.4-5.0); ANION GAP 8 mmol/L (5-15); CALCIUM 6.6 mg/dL (8.5-10.1); CHLORIDE 106 mmol/L (98-107)
[2017-05-06 12:03] LABS: % IRON SATURATION 16 % (20-55); ALANINE AMINOTRANSFERASE 44 U/L (12-78); ALKALINE PHOSPHATASE 180 U/L (45-117); BILIRUBIN,TOTAL 0.9 mg/dL (0.2-1.0); CREATININE 0.53 mg/dL (0.55-1.02); FOLATE LEVEL 5.9 ng/mL (3.1-17.5); IRON LEVEL 28 mcg/dL (50-170); TOTAL IRON BINDING CAPACITY 175 mcg/dL (250-450); TOTAL PROTEIN 5.5 g/dL (6.4-8.2)
[2017-05-06] MEDS: LIDODERM 5% PATCH TD SCH (12:03)
[2017-05-06 12:14] LABS: BASOPHILS # (AUTO) 0.03 x10^3/uL (0-0.1); BASOPHILS % (AUTO) 1 % (0-1); EOSINOPHILS # (AUTO) 0.11 x10^3/uL (0-0.4); EOSINOPHILS % (AUTO) 2 % (1-7); LYMPHOCYTES # (AUTO) 1.72 x10^3/uL (1-3.4); LYMPHOCYTES % (AUTO) 24 % (22-44); MD SCAN; MONOCYTES # (AUTO) 0.37 x10^3/uL (0.2-0.8); MONOCYTES % (AUTO) 5 % (2-9); NEUTROPHILS # (AUTO) 4.94 x10^3/uL (1.8-6.8); NEUTROPHILS % (AUTO) 69 % (42-75)
[2017-05-06 15:51] VITALS: BP 93/56
[2017-05-06] MEDS ORDERED: FERROUS SULFATE 325 MG TABLET PO SCH (17:00)
[2017-05-06 19:49] VITALS: BP 93/57
[2017-05-07] MEDS: MORPHINE SULFATE 4 MG/ML, 1ML IVPush PRN ×2 (02:28→06:22)
[2017-05-07 04:21] VITALS: BP 96/61
[2017-05-07] MEDS: SUCRALFATE 1 GM/10 ML UDC PO SCH ×2 (05:10→10:13)
[2017-05-07 05:13] LABS: INTERNATIONAL NORMALIZED RATIO 1.24 (0.93-1.1); PROTHROMBIN TIME 12.8 Seconds (9.6-11.5)
[2017-05-07 05:38] LABS: MEAN CORPUSCULAR HEMOGLOBIN 32.1 pg (27.0-34.8); MEAN CORPUSCULAR HGB CONC 33.8 g/dL (32.4-35.8); MEAN PLATELET VOLUME 7.8 fL (7.4-10.4); PLATELET COUNT 174 x10^3/uL (130-400); RED BLOOD COUNT 2.52 x10^6/uL (3.82-5.3)
[2017-05-07 06:30] LABS: BASOPHILS # (AUTO) 0.03 x10^3/uL (0-0.1); BASOPHILS % (AUTO) 0 % (0-1); EOSINOPHILS # (AUTO) 0.12 x10^3/uL (0-0.4); EOSINOPHILS % (AUTO) 1 % (1-7); LYMPHOCYTES # (AUTO) 1.87 x10^3/uL (1-3.4); LYMPHOCYTES % (AUTO) 22 % (22-44); MD SCAN; MONOCYTES # (AUTO) 0.42 x10^3/uL (0.2-0.8); MONOCYTES % (AUTO) 5 % (2-9); NEUTROPHILS # (AUTO) 5.92 x10^3/uL (1.8-6.8); NEUTROPHILS % (AUTO) 71 % (42-75)
[2017-05-07 07:22] VITALS: BP 96/55
[2017-05-07] MEDS: PHYTONADIONE 10 MG/ML, 1ML SQ SCH (10:13)
[2017-05-07] MEDS: OMEPRAZOLE 20 MG CAPSULE.DR PO SCH (10:13)
[2017-05-07] MEDS ORDERED: SIME125T10 PO (10:25)
[2017-05-07 10:48] LABS: ALBUMIN 1.8 g/dL (3.4-5.0); CALCIUM 6.8 mg/dL (8.5-10.1); CREATININE 0.45 mg/dL (0.55-1.02)
[2017-05-07 10:58] LABS: ALANINE AMINOTRANSFERASE 44 U/L (12-78); ALKALINE PHOSPHATASE 192 U/L (45-117); ANION GAP 7 mmol/L (5-15); BILIRUBIN,TOTAL 0.9 mg/dL (0.2-1.0); CHLORIDE 105 mmol/L (98-107); TOTAL PROTEIN 5.1 g/dL (6.4-8.2)
[2017-05-07] MEDS: LIDODERM 5% PATCH TD SCH (11:24)
== END 2017-05-07 13:59 | disposition home or self-care (01) | DRG 441 ==
LOC: ED 14:29 → EDIP 14:30 → ED 14:39 → 4WST 17:28
PROVIDERS: ADMIT Hospitalist; ATTEND Hospitalist
PROC: 30233N1 Transfusion of Nonautologous Red Blood Cells into Peripheral Vein, Percutaneous Approach (ICD-10-PCS; 2017-05-04)
PROC: 0DBN8ZX Excision of Sigmoid Colon, Via Natural or Artificial Opening Endoscopic, Diagnostic (ICD-10-PCS; 2017-05-05)
PROC: 0DBP8ZX Excision of Rectum, Via Natural or Artificial Opening Endoscopic, Diagnostic (ICD-10-PCS; 2017-05-05)
PROC: 0DB58ZX Excision of Esophagus, Via Natural or Artificial Opening Endoscopic, Diagnostic (ICD-10-PCS; principal; 2017-05-05 13:30)
DX: K76.6 Portal hypertension (principal); E43 Unspecified severe protein-calorie malnutrition; D68.9 Coagulation defect, unspecified; Z93.0 Tracheostomy status; D62 Acute posthemorrhagic anemia; I42.9 Cardiomyopathy, unspecified; E87.1 Hypo-osmolality and hyponatremia; Z86.74 Personal history of sudden cardiac arrest; K92.1 Melena; K20.9 Esophagitis, unspecified; K70.31 Alcoholic cirrhosis of liver with ascites; D63.8 Anemia in other chronic diseases classified elsewhere; E73.9 Lactose intolerance, unspecified; E87.6 Hypokalemia; F10.21 Alcohol dependence, in remission; F32.9 Major depressive disorder, single episode, unspecified; F41.9 Anxiety disorder, unspecified; G89.29 Other chronic pain; K31.84 Gastroparesis; K64.8 Other hemorrhoids; K72.10 Chronic hepatic failure without coma; K63.5 Polyp of colon; K31.89 Other diseases of stomach and duodenum; Z79.899 Other long term (current) drug therapy
CPT/HCPCS: 36415; 36430; 71045; 74018; 76705; 80053; 80307; 81003; 81025; 82607; 82668; 82728; 82746; 82784; 83010; 83516; 83540; 83550; 83615; 83690; 83735; 84100; 84133; 85014; 85018; 85025; 85045; 85610; 85730; 86850; 86900; 86923; 88305; 93005; 96374; J0696; J2250; J2354; J2704; J3010; J3430; J3480; C9113; J0330; J3475; J7030; J7040; J7050; P9016

== ENCOUNTER 2017-05-11 18:11 | Inpatient (IN) | payer OTHER ==
[~2017-05-11] VITALS: Ht 165.1 cm; Wt 55.4 kg
[~2017-05-11 18:11] MED LIST changes: +POTA20TA14 PO; +SIME125T10 PO; +VITAMIN A; +VITAMIN D
[2017-05-11 19:14] LABS: ALANINE AMINOTRANSFERASE 39 U/L (12-78); ANION GAP 7 mmol/L (5-15); CALCIUM 7.5 mg/dL (8.5-10.1); CHLORIDE 112 mmol/L (98-107)
[2017-05-11 19:15] LABS: MEAN CORPUSCULAR HEMOGLOBIN 32.1 pg (27.0-34.8); MEAN CORPUSCULAR HGB CONC 33.1 g/dL (32.4-35.8); MEAN CORPUSCULAR VOLUME 96.8 fL (80-100); MEAN PLATELET VOLUME 7.8 fL (7.4-10.4); PLATELET COUNT 244 x10^3/uL (130-400); RED BLOOD COUNT 2.96 x10^6/uL (3.82-5.3); RED CELL DISTRIBUTION WIDTH 22.2 % (9.6-15.2)
[2017-05-11 19:19] LABS: ALKALINE PHOSPHATASE 218 U/L (45-117); BILIRUBIN,TOTAL 0.9 mg/dL (0.2-1.0); CREATININE 0.46 mg/dL (0.55-1.02); TOTAL PROTEIN 6.6 g/dL (6.4-8.2)
[2017-05-11 20:04] LABS: MD YES
[2017-05-11 20:20] LABS: BASOS#(MANUAL) 0.06 x10^3/uL (0-0.1); BASOS% (MANUAL) 1 % (0-1); EOS#(MANUAL) 0.18 x10^3/uL (0.0-0.4); EOS% (MANUAL) 3 % (1-7); LYMPHS% (MANUAL) 23 % (22-44); MONOS#(MANUAL) 0.43 x10^3/uL (0.3-2.7); MONOS% (MANUAL) 7 % (2-9); SEG#(MANUAL) 4.03 x10^3/uL (1.8-6.8); SEGS% (MANUAL) 66 % (42-75)
[2017-05-11 20:23] LABS: HYPOCHROMIA 1+; POLYCHROMASIA 1+
[2017-05-11 20:24] LABS: <PLATELET ESTIMATE> ADEQUATE; <PLT MORPHOLOGY> NORMAL PLT MORPH; ANISOCYTOSIS 1+
[2017-05-11] MEDS ORDERED: ONDANSETRON 2MG/ML, 2ML ONE (20:57)
[2017-05-11] MEDS ORDERED: MORPHINE SULFATE 4 MG/ML, 1ML ONE ×2 (20:57→23:13)
[2017-05-11] MEDS ORDERED: SODIUM CHLORIDE FLUSH 10ML SYR IVF ONE (21:00)
[2017-05-11] MEDS ORDERED: ONDANSETRON 2MG/ML, 2ML IVPush ONE (21:00)
[2017-05-11] MEDS: MORPHINE SULFATE 4 MG/ML, 1ML IVPush PRN ×2 (21:17→23:17)
[2017-05-11 21:42] LABS: CULTURE INDICATED? YES; MICROSCOPIC INDICATED
[2017-05-12] MEDS ORDERED: MORPHINE SULFATE 4 MG/ML, 1ML ONE (00:39)
[2017-05-12] MEDS ORDERED: LIDOCAINE 1%, 20ML ONE ×2 (01:26→12:02)
[2017-05-12] MEDS: MORPHINE SULFATE 4 MG/ML, 1ML IVPush PRN ×2 (01:32→04:41)
[2017-05-12] MEDS ORDERED: FENTANYL PF 100 MCG/2ML ONE (02:20)
[2017-05-12 02:30] LABS: INTERNATIONAL NORMALIZED RATIO 1.16 (0.93-1.1)
[2017-05-12] MEDS ORDERED: FENTANYL PF 100 MCG/2ML IVPush STA (02:44)
[2017-05-12 02:54] VITALS: BP 100/67
[2017-05-12] MEDS ORDERED: SPIRONOLACTONE 25 MG TABLET PO ONE (02:54)
[2017-05-12] MEDS ORDERED: POTASSIUM CHLORIDE 20 MEQ TAB.ER.PRT PO ONE (05:30)
[2017-05-12] MEDS ORDERED: ALBUMIN HUMAN 25% 50 ML IV ONE (05:30)
[2017-05-12] MEDS ORDERED: ACETAMINOPHEN 325 MG TABLET PO PRN (05:30)
[2017-05-12] MEDS ORDERED: ONDANSETRON 2MG/ML, 2ML IVPush PRN (05:30)
[2017-05-12 06:30] VITALS: BP 91/61
[2017-05-12] MEDS: morphine SULFATE 10 MG/ML, 1ML IVPush PRN ×5 (07:51→20:56)
[2017-05-12] MEDS: MAGNESIUM OXIDE 400 MG TABLET PO SCH (09:16)
[2017-05-12] MEDS: OMEPRAZOLE 20 MG CAPSULE.DR PO SCH ×2 (09:16→20:53)
[2017-05-12] MEDS: FOLIC ACID 1 MG TABLET PO SCH (09:17)
[2017-05-12] MEDS: FUROSEMIDE 40 MG TABLET PO SCH (09:17)
[2017-05-12 09:19] LABS: ALBUMIN 1.8 g/dL (3.4-5.0); ANION GAP 4 mmol/L (5-15); CALCIUM 7.4 mg/dL (8.5-10.1); CHLORIDE 112 mmol/L (98-107); CREATININE 0.35 mg/dL (0.55-1.02)
[2017-05-12] MEDS: POTASSIUM CHLORIDE 20 MEQ TAB.ER.PRT PO SCH (09:19)
[2017-05-12 10:06] VITALS: BP 94/64
[2017-05-12 12:56] VITALS: BP 92/47
[2017-05-12] MEDS: SPIRONOLACTONE 100 MG TABLET PO SCH (13:05)
[2017-05-12] MEDS ORDERED: MAGNESIUM HYDROXIDE 8%, 30ML UDC PO PRN (14:30)
[2017-05-12] MEDS ORDERED: BISACODYL 10 MG SUPP PR PRN (14:30)
[2017-05-12 16:18] LABS: CELLS COUNTED 79
[2017-05-12] MEDS ORDERED: PROPRANOLOL 10 MG TABLET PO SCH (18:00)
[2017-05-12 18:02] VITALS: BP 98/60
[2017-05-12] MEDS: PROPRANOLOL 10 MG TABLET PO SCH (18:03)
[2017-05-12 19:53] VITALS: BP 98/64
[2017-05-12] MEDS: LACTULOSE 20 GM/30 ML UDC PO SCH (20:53)
[2017-05-13 00:19] VITALS: BP 93/54
[2017-05-13] MEDS: morphine SULFATE 10 MG/ML, 1ML IVPush PRN ×8 (00:28→22:09)
[2017-05-13 05:49] LABS: ALANINE AMINOTRANSFERASE 29 U/L (12-78); ALBUMIN 1.8 g/dL (3.4-5.0); ANION GAP 4 mmol/L (5-15); CALCIUM 7.2 mg/dL (8.5-10.1); CHLORIDE 107 mmol/L (98-107); CREATININE 0.43 mg/dL (0.55-1.02)
[2017-05-13 05:52] LABS: ALKALINE PHOSPHATASE 153 U/L (45-117); BILIRUBIN,TOTAL 0.7 mg/dL (0.2-1.0); TOTAL PROTEIN 5.6 g/dL (6.4-8.2)
[2017-05-13 05:57] LABS: BASOPHILS # (AUTO) 0.07 x10^3/uL (0-0.1); BASOPHILS % (AUTO) 1 % (0-1); EOSINOPHILS # (AUTO) 0.05 x10^3/uL (0-0.4); EOSINOPHILS % (AUTO) 1 % (1-7); LYMPHOCYTES # (AUTO) 1.68 x10^3/uL (1-3.4); LYMPHOCYTES % (AUTO) 29 % (22-44); MD NO; MEAN CORPUSCULAR HEMOGLOBIN 32.4 pg (27.0-34.8); MEAN CORPUSCULAR HGB CONC 33.1 g/dL (32.4-35.8); MEAN CORPUSCULAR VOLUME 97.8 fL (80-100); MONOCYTES # (AUTO) 0.56 x10^3/uL (0.2-0.8); MONOCYTES % (AUTO) 10 % (2-9); NEUTROPHILS # (AUTO) 3.36 x10^3/uL (1.8-6.8); NEUTROPHILS % (AUTO) 59 % (42-75); PLATELET COUNT 207 x10^3/uL (130-400); RED BLOOD COUNT 2.47 x10^6/uL (3.82-5.3); RED CELL DISTRIBUTION WIDTH 21.1 % (9.6-15.2)
[2017-05-13 06:42] VITALS: BP 90/57
[2017-05-13] MEDS: PROPRANOLOL 10 MG TABLET PO SCH ×2 (06:46→18:43)
[2017-05-13] MEDS: OMEPRAZOLE 20 MG CAPSULE.DR PO SCH ×2 (08:03→22:09)
[2017-05-13] MEDS: FOLIC ACID 1 MG TABLET PO SCH (08:03)
[2017-05-13] MEDS: FUROSEMIDE 40 MG TABLET PO SCH ×2 (08:03→22:09)
[2017-05-13] MEDS: LACTULOSE 20 GM/30 ML UDC PO SCH ×2 (08:06→22:11)
[2017-05-13] MEDS: POTASSIUM CHLORIDE 20 MEQ TAB.ER.PRT PO SCH (08:06)
[2017-05-13] MEDS: MAGNESIUM OXIDE 400 MG TABLET PO SCH (08:06)
[2017-05-13 08:20] VITALS: BP 94/61
[2017-05-13] MEDS: SPIRONOLACTONE 100 MG TABLET PO SCH (09:47)
[2017-05-13] MEDS ORDERED: MORPHINE SULFATE 4 MG/ML, 1ML ONE ×2 (12:41→18:39)
[2017-05-13 12:50] VITALS: BP 90/47
[2017-05-13] MEDS: ENOXAPARIN 40 MG/0.4 ML SQ SCH (16:53)
[2017-05-13 18:42] VITALS: BP 97/63
[2017-05-13 20:11] VITALS: BP 99/55
[2017-05-14] VITALS (7 sets, daily range): BP systolic 81–104; BP diastolic 49–65
[2017-05-14] MEDS: morphine SULFATE 10 MG/ML, 1ML IVPush PRN ×8 (02:06→23:20)
[2017-05-14 05:35] LABS: ANION GAP 8 mmol/L (5-15); CALCIUM 7.6 mg/dL (8.5-10.1); CHLORIDE 105 mmol/L (98-107)
[2017-05-14 05:37] LABS: CREATININE 0.44 mg/dL (0.55-1.02)
[2017-05-14] MEDS: FUROSEMIDE 40 MG TABLET PO SCH ×2 (08:37→17:37)
[2017-05-14] MEDS: FOLIC ACID 1 MG TABLET PO SCH (08:37)
[2017-05-14] MEDS: LACTULOSE 20 GM/30 ML UDC PO SCH ×2 (08:38→20:37)
[2017-05-14] MEDS: OMEPRAZOLE 20 MG CAPSULE.DR PO SCH ×2 (08:42→20:38)
[2017-05-14] MEDS: MAGNESIUM OXIDE 400 MG TABLET PO SCH (08:42)
[2017-05-14] MEDS ORDERED: MAGNESIUM SULFATE PMX 2GM/50ML 50 ML IV ONE (11:30)
[2017-05-14] MEDS ORDERED: MORPHINE SULFATE 4 MG/ML, 1ML ONE ×2 (11:37→14:25)
[2017-05-14] MEDS: SPIRONOLACTONE 50 MG TABLET PO SCH (11:43)
[2017-05-14] MEDS: PROPRANOLOL 10 MG TABLET PO SCH ×2 (11:43→20:38)
[2017-05-14] MEDS ORDERED: LIDOCAINE 1%, 20ML ONE (11:45)
[2017-05-14] MEDS: ENOXAPARIN 40 MG/0.4 ML SQ SCH (16:43)
[2017-05-15 02:09] VITALS: BP 91/43
[2017-05-15] MEDS: morphine SULFATE 10 MG/ML, 1ML IVPush PRN ×4 (02:12→11:11)
[2017-05-15] MEDS: PROPRANOLOL 10 MG TABLET PO SCH ×2 (04:58→17:45)
[2017-05-15 05:15] LABS: ALBUMIN 1.8 g/dL (3.4-5.0); ANION GAP 8 mmol/L (5-15); CALCIUM 7.4 mg/dL (8.5-10.1); CHLORIDE 104 mmol/L (98-107)
[2017-05-15 05:20] LABS: ALANINE AMINOTRANSFERASE 26 U/L (12-78); ALKALINE PHOSPHATASE 162 U/L (45-117); BILIRUBIN,TOTAL 0.7 mg/dL (0.2-1.0); CREATININE 0.53 mg/dL (0.55-1.02)
[2017-05-15 07:56] VITALS: BP 92/54
[2017-05-15] MEDS: SPIRONOLACTONE 50 MG TABLET PO SCH (08:04)
[2017-05-15] MEDS: OMEPRAZOLE 20 MG CAPSULE.DR PO SCH ×2 (08:04→20:37)
[2017-05-15] MEDS: FOLIC ACID 1 MG TABLET PO SCH (08:04)
[2017-05-15] MEDS: FUROSEMIDE 40 MG TABLET PO SCH ×2 (08:04→16:37)
[2017-05-15] MEDS: LACTULOSE 20 GM/30 ML UDC PO SCH (08:05)
[2017-05-15] MEDS: MAGNESIUM OXIDE 400 MG TABLET PO SCH (08:14)
[2017-05-15 13:14] VITALS: BP 91/47
[2017-05-15] MEDS: OXYcodone IR 5MG TABLET PO PRN ×3 (13:45→21:40)
[2017-05-15] MEDS: ENOXAPARIN 40 MG/0.4 ML SQ SCH (16:37)
[2017-05-15 17:46] VITALS: BP 90/48
[2017-05-15 19:56] VITALS: BP 95/55
[2017-05-16] MEDS: OXYcodone IR 5MG TABLET PO PRN ×6 (01:44→22:02)
[2017-05-16 01:53] VITALS: BP 92/52
[2017-05-16 05:16] LABS: CHLORIDE 103 mmol/L (98-107)
[2017-05-16 05:34] LABS: ALANINE AMINOTRANSFERASE 22 U/L (12-78); ALBUMIN 1.8 g/dL (3.4-5.0); ALKALINE PHOSPHATASE 135 U/L (45-117); ANION GAP 7 mmol/L (5-15); CALCIUM 7.4 mg/dL (8.5-10.1); CREATININE 0.52 mg/dL (0.55-1.02); TOTAL PROTEIN 5.8 g/dL (6.4-8.2)
[2017-05-16] MEDS: PROPRANOLOL 10 MG TABLET PO SCH ×2 (05:53→18:04)
[2017-05-16 05:54] VITALS: BP 85/49
[2017-05-16 07:15] VITALS: BP 90/52
[2017-05-16] MEDS: MAGNESIUM OXIDE 400 MG TABLET PO SCH (09:50)
[2017-05-16] MEDS: FOLIC ACID 1 MG TABLET PO SCH (09:50)
[2017-05-16] MEDS: FUROSEMIDE 40 MG TABLET PO SCH (09:50)
[2017-05-16] MEDS: SPIRONOLACTONE 50 MG TABLET PO SCH (09:50)
[2017-05-16] MEDS: OMEPRAZOLE 20 MG CAPSULE.DR PO SCH ×2 (09:50→22:02)
[2017-05-16 13:35] VITALS: BP 96/59
[2017-05-16] MEDS: ENOXAPARIN 40 MG/0.4 ML SQ SCH (18:00)
[2017-05-16 18:03] VITALS: BP 94/60
[2017-05-16 20:44] VITALS: BP 91/52
[2017-05-17] MEDS: OXYcodone IR 5MG TABLET PO PRN ×4 (02:05→13:59)
[2017-05-17 03:36] VITALS: BP 97/54
[2017-05-17] MEDS: PROPRANOLOL 10 MG TABLET PO SCH (06:09)
[2017-05-17 07:12] VITALS: BP 100/57
[2017-05-17] MEDS: OMEPRAZOLE 20 MG CAPSULE.DR PO SCH (08:50)
[2017-05-17] MEDS: MAGNESIUM OXIDE 400 MG TABLET PO SCH (08:50)
[2017-05-17] MEDS: FOLIC ACID 1 MG TABLET PO SCH (08:50)
[2017-05-17] MEDS ORDERED: SPIRONOLACTONE 50 MG TABLET PO SCH (09:00)
[2017-05-17] MEDS ORDERED: FUROSEMIDE 40 MG TABLET PO SCH (09:00)
[2017-05-17] MEDS ORDERED: FURO40TA6 PO (11:52)
[2017-05-17] MEDS ORDERED: SPIR50TA PO (11:52)
[2017-05-17] MEDS ORDERED: OXYC5TAB3 PO (11:52)
[2017-05-17 12:00] VITALS: BP 94/60
[2017-05-17] MEDS ORDERED: SPIR100T2 PO (12:07)
[2017-05-17 14:25] LABS: ANA SCREEN NEGATIVE (Negative)
== END 2017-05-17 14:24 | disposition home or self-care (01) | DRG 432 ==
LOC: ED 22:03 → EDIP 05-12 01:57 → 4NOR 05-12 02:50 → OBSVTOIN 05-12 05:10 → DCLOUNGE 05-17 13:10
PROVIDERS: ADMIT Hospitalist; ATTEND Hospitalist
PROC: 0W9G3ZZ Drainage of Peritoneal Cavity, Percutaneous Approach (ICD-10-PCS; principal; 2017-05-12)
PROC: 0WJG3ZZ Inspection of Peritoneal Cavity, Percutaneous Approach (ICD-10-PCS; 2017-05-12)
DX: K70.31 Alcoholic cirrhosis of liver with ascites (principal); E43 Unspecified severe protein-calorie malnutrition; K70.11 Alcoholic hepatitis with ascites; K59.39 Other megacolon; I42.9 Cardiomyopathy, unspecified; K22.10 Ulcer of esophagus without bleeding; K31.84 Gastroparesis; K76.6 Portal hypertension; K92.2 Gastrointestinal hemorrhage, unspecified; D12.5 Benign neoplasm of sigmoid colon; I95.0 Idiopathic hypotension; D64.9 Anemia, unspecified; E73.9 Lactose intolerance, unspecified; E87.6 Hypokalemia; F10.21 Alcohol dependence, in remission; F17.210 Nicotine dependence, cigarettes, uncomplicated; M19.90 Unspecified osteoarthritis, unspecified site; Z86.74 Personal history of sudden cardiac arrest; Z68.20 Body mass index [BMI] 20.0-20.9, adult
CPT/HCPCS: 36415; 49083; 74018; 74021; 76700; 80048; 80053; 81001; 82040; 82042; 82103; 82104; 82390; 82728; 83516; 83540; 83550; 83690; 83735; 84100; 84703; 85025; 85610; 85730; 86038; 86706; 86803; 87070; 87086; 87205; 88112; 88305; 88341; 88342; 89051; 93970; 96374; 96375; 96376; G0378; J1650; J2405; J3010; J3490; P9047; G0461; J2270; J3475

== ENCOUNTER → 2017-09-05 | Outpatient (CLI) | payer OTHER ==
[~2017-09-05] MED LIST changes: +SPIR100T2 PO
== END | disposition home or self-care (01) ==
LOC: CFH 08:49
PROVIDERS: ATTEND Internal Medicine Gastroenterology
DX: K70.9 Alcoholic liver disease, unspecified (principal); K70.30 Alcoholic cirrhosis of liver without ascites; R77.2 Abnormality of alphafetoprotein; R74.0 Nonspecific elevation of levels of transaminase and lactic acid dehydrogenase [LDH]; R18.8 Other ascites; R16.0 Hepatomegaly, not elsewhere classified; R14.0 Abdominal distension (gaseous)
CPT/HCPCS: 76700

== ENCOUNTER → 2017-10-12 | Outpatient (CLI) | payer OTHER | END | disposition home or self-care (01) | LOC: CFH 08:49 | PROVIDERS: ATTEND Surgery | DX: K76.5 Hepatic veno-occlusive disease (principal); J98.11 Atelectasis; D73.89 Other diseases of spleen | CPT/HCPCS: 74176 ==

== ENCOUNTER 2017-11-27 00:11 | Emergency (ER) | payer OTHER ==
[~2017-11-27] VITALS: Ht 165.1 cm; Wt 58.2 kg
[~2017-11-27 00:11] MED LIST changes: -SPIR100T2 PO; +SPIR100T4 PO
[2017-11-27] MEDS ORDERED: DULO30CA2 PO (00:18)
[2017-11-27] MEDS ORDERED: POTASSIUM (00:18)
[2017-11-27] MEDS ORDERED: GABA600T2 PO (00:18)
[2017-11-27 01:23] LABS: MEAN CORPUSCULAR HEMOGLOBIN 25.3 pg (27.0-34.8); MEAN CORPUSCULAR HGB CONC 32.3 g/dL (32.4-35.8); MEAN CORPUSCULAR VOLUME 78.4 fL (80-100); MEAN PLATELET VOLUME 8.6 fL (7.4-10.4); PLATELET COUNT 255 x10^3/uL (130-400); RED BLOOD COUNT 4.29 x10^6/uL (3.82-5.3); RED CELL DISTRIBUTION WIDTH 26.3 % (9.6-15.2)
[2017-11-27] MEDS ORDERED: SODIUM CHLORIDE 0.9% 1,000ML IVBOLUS ONE (01:30)
[2017-11-27] MEDS ORDERED: METOCLOPRAMIDE 5 MG/ML, 2ML IVPush ONE (01:30)
[2017-11-27 01:34] LABS: ALANINE AMINOTRANSFERASE 52 U/L (12-78); ALBUMIN 2.7 g/dL (3.4-5.0); ANION GAP 7 mmol/L (5-15); BASOPHILS # (AUTO) 0.07 x10^3/uL (0-0.1); BASOPHILS % (AUTO) 1 % (0-1); CALCIUM 8.3 mg/dL (8.5-10.1); CHLORIDE 113 mmol/L (98-107); CREATININE 0.46 mg/dL (0.55-1.02); EOSINOPHILS # (AUTO) 0.15 x10^3/uL (0-0.4); EOSINOPHILS % (AUTO) 1 % (1-7); LYMPHOCYTES # (AUTO) 2.54 x10^3/uL (1-3.4); LYMPHOCYTES % (AUTO) 25 % (22-44); MD SCAN; MONOCYTES # (AUTO) 0.74 x10^3/uL (0.2-0.8); MONOCYTES % (AUTO) 7 % (2-9); NEUTROPHILS # (AUTO) 6.83 x10^3/uL (1.8-6.8); NEUTROPHILS % (AUTO) 66 % (42-75)
[2017-11-27 01:37] LABS: ALKALINE PHOSPHATASE 133 U/L (45-117); BILIRUBIN,TOTAL 0.3 mg/dL (0.2-1.0); TOTAL PROTEIN 6.5 g/dL (6.4-8.2)
[2017-11-27] MEDS ORDERED: METOCLOPRAMIDE 5 MG/ML, 2ML ONE (01:53)
[2017-11-27] MEDS ORDERED: MORPHINE SULFATE 4 MG/ML, 1ML ONE (01:54)
[2017-11-27] MEDS ORDERED: MORPHINE SULFATE 4 MG/ML, 1ML IVPush PRN (02:00)
[2017-11-27 02:18] LABS: CULTURE INDICATED? YES; MICROSCOPIC INDICATED
[2017-11-27 02:32] VITALS: BP 125/80
[2017-11-27] MEDS ORDERED: POTASSIUM CHLORIDE 20 MEQ TAB.ER.PRT ONE (03:13)
[2017-11-27] MEDS ORDERED: POTASSIUM CHLORIDE 20 MEQ TAB.ER.PRT PO ONE (03:30)
== END 2017-11-27 03:22 | disposition home or self-care (01) ==
LOC: ED 00:32
DX: A09 Infectious gastroenteritis and colitis, unspecified (principal); I42.9 Cardiomyopathy, unspecified; Z93.0 Tracheostomy status
CPT/HCPCS: 36415; 74021; 76700; 80053; 81001; 83690; 83735; 85025; 87086; 96361; 96374; 96375; 99285; J2765; J7030

== ENCOUNTER 2018-01-04 09:48 | Inpatient (IN) | payer OTHER ==
[~2018-01-04] VITALS: Ht 165.1 cm; Wt 79.9 kg
[~2018-01-04 09:48] MED LIST changes: +DULO30CA2 PO; +FURO20TA3 PO; +GABA600T2 PO; +MAGN400T7 PO; +MV-M1TAB16 PO; +POTA20TA89 PO; +POTASSIUM; +VITA10004 PO; +Vitamin D PO
[2018-01-04] MEDS ORDERED: LACTATED RINGERS 1,000 ML IV SCH (10:21)
[2018-01-04 10:29] VITALS: BP 101/66
[2018-01-04] MEDS ORDERED: GABAPENTIN 300 MG CAPSULE PO ONE (10:30)
[2018-01-04] MEDS ORDERED: OXYcodone IR 5MG TABLET PO ONE (10:30)
[2018-01-04] MEDS ORDERED: FENTANYL PF 250 MCG/5ML ONE (10:47)
[2018-01-04] MEDS ORDERED: NEOSTIGMINE 1 MG/ML, 10ML ONE (11:41)
[2018-01-04] MEDS ORDERED: PROPOFOL 10 MG/ML, 20ML ONE (11:41)
[2018-01-04] MEDS ORDERED: ONDANSETRON 2MG/ML, 2ML ONE (11:41)
[2018-01-04] MEDS ORDERED: DEXAMETHASONE 4 MG/ML, 1ML ONE (11:41)
[2018-01-04] MEDS ORDERED: ROCURONIUM 10 MG/ML,10ML ONE (11:41)
[2018-01-04] MEDS ORDERED: CEFAZOLIN 1,000 MG ONE (11:41)
[2018-01-04] MEDS ORDERED: GLYCOPYRROLATE 0.2MG/1ML, 5ML ONE (11:41)
[2018-01-04] MEDS ORDERED: SUCCINYLCHOLINE 20 MG/ML, 10ML ONE (11:41)
[2018-01-04] MEDS ORDERED: BUPIVACAINE/PF-EPI 0.5% 1:200K IM ONE (12:10)
[2018-01-04] MEDS ORDERED: PROCHLORPERAZINE 5 MG/ML, 2ML IV PRN (13:30)
[2018-01-04] MEDS ORDERED: FENTANYL PF 100 MCG/2ML IV PRN (13:30)
[2018-01-04] MEDS ORDERED: hydrALAzine 20 MG/ML, 1ML IV PRN (13:30)
[2018-01-04] MEDS ORDERED: LABETALOL 5MG/ML, 20ML IV PRN (13:30)
[2018-01-04] MEDS ORDERED: MEPERIDINE/PF 25MG/0.5ML IVPush PRN (13:30)
[2018-01-04] MEDS ORDERED: DIPHENHYDRAMINE 50 MG/ML, 1ML IVPush PRN ×2 (13:30→16:30)
[2018-01-04] MEDS ORDERED: FENTANYL PF 100 MCG/2ML ONE (13:31)
[2018-01-04] MEDS ORDERED: HYDROmorphone 2 MG/ML, 1ML ONE ×5 (14:08→17:30)
[2018-01-04] MEDS ORDERED: OXYcodone 5 MG/5 ML ORAL.SOL UDC ONE (14:08)
[2018-01-04] MEDS: HYDROmorphone 1 MG/ML, 1ML IV PRN ×4 (14:10→16:16)
[2018-01-04] MEDS: OXYcodone 5 MG/5 ML ORAL.SOL UDC PO PRN ×4 (14:10→22:53)
[2018-01-04] MEDS ORDERED: FUROSEMIDE 40 MG TABLET PO PRN (14:15)
[2018-01-04] MEDS ORDERED: SPIRONOLACTONE 50 MG TABLET PO PRN (16:30)
[2018-01-04] MEDS ORDERED: OXYcodone IR 5MG TABLET PO PRN (16:30)
[2018-01-04] MEDS: LACTATED RINGERS 1,000 ML IV SCH (16:30)
[2018-01-04] MEDS ORDERED: ONDANSETRON 2MG/ML, 2ML IVPush PRN (16:30)
[2018-01-04] MEDS ORDERED: OMEPRAZOLE 20 MG CAPSULE.DR PO PRN (16:30)
[2018-01-04] MEDS: HYDROmorphone 2 MG/ML, 1ML IV PRN ×5 (17:10→22:04)
[2018-01-04] MEDS: GABAPENTIN 300 MG CAPSULE PO SCH (19:49)
[2018-01-04 19:54] VITALS: BP 121/85
[2018-01-04] MEDS ORDERED: SODIUM CHLORIDE 0.9% 1,000ML IVBOLUS ONE (23:00)
[2018-01-05] MEDS: HYDROmorphone 2 MG/ML, 1ML IV PRN ×2 (00:08→03:01)
[2018-01-05 00:15] VITALS: BP 112/74
[2018-01-05 01:17] LABS: MEAN CORPUSCULAR HEMOGLOBIN 28.1 pg (27.0-34.8); MEAN CORPUSCULAR HGB CONC 33.6 g/dL (32.4-35.8); MEAN CORPUSCULAR VOLUME 83.6 fL (80-100); MEAN PLATELET VOLUME 8.8 fL (7.4-10.4); PLATELET COUNT 306 x10^3/uL (130-400); RED BLOOD COUNT 4.06 x10^6/uL (3.82-5.3); RED CELL DISTRIBUTION WIDTH 23.4 % (9.6-15.2)
[2018-01-05] MEDS ORDERED: SODIUM CHLORIDE 0.9% 1,000ML IVBOLUS ONE (01:30)
[2018-01-05 02:25] LABS: MD YES
[2018-01-05 02:31] LABS: BAND#(MANUAL) 1.64 x10^3/uL; BANDS%(MANUAL) 11 % (0-7); LYMPH#(MANUAL) 2.24 x10^3/uL (1-3.4); LYMPHS% (MANUAL) 15 % (22-44); MONOS#(MANUAL) 1.34 x10^3/uL (0.3-2.7); MONOS% (MANUAL) 9 % (2-9); REACTIVE LYMPHS # (MANUAL) 0.15 x10^3/uL (0-0); REACTIVE LYMPHS % (MANUAL) 1 % (0-0); SEG#(MANUAL) 9.54 x10^3/uL (1.8-6.8); SEGS% (MANUAL) 64 % (42-75)
[2018-01-05 02:32] LABS: <PLATELET ESTIMATE> ADEQUATE; ANISOCYTOSIS 1+; MICROCYTOSIS 1+; OVALOCYTES 1+; POLYCHROMASIA 1+
[2018-01-05 02:34] LABS: <PLT MORPHOLOGY> NORMAL PLT MORPH; TARGET CELLS 1+
[2018-01-05] MEDS: LACTATED RINGERS 1,000 ML IV SCH ×3 (04:02→12:00)
[2018-01-05 04:04] VITALS: BP 70/47
[2018-01-05] MEDS ORDERED: SODIUM CHLORIDE 0.9% 1,000 ML IVBOLUS PRN (04:22)
[2018-01-05 04:46] LABS: MEAN CORPUSCULAR HEMOGLOBIN 28.1 pg (27.0-34.8); MEAN CORPUSCULAR HGB CONC 32.9 g/dL (32.4-35.8); MEAN CORPUSCULAR VOLUME 85.6 fL (80-100); MEAN PLATELET VOLUME 9.5 fL (7.4-10.4); PLATELET COUNT 285 x10^3/uL (130-400); RED BLOOD COUNT 4.11 x10^6/uL (3.82-5.3); RED CELL DISTRIBUTION WIDTH 23.4 % (9.6-15.2)
[2018-01-05 05:27] VITALS: BP 73/51
[2018-01-05 05:44] LABS: MD YES
[2018-01-05 05:48] LABS: ANISOCYTOSIS 1+; BAND#(MANUAL) 2.08 x10^3/uL; BANDS%(MANUAL) 20 % (0-7); LYMPH#(MANUAL) 3.22 x10^3/uL (1-3.4); LYMPHS% (MANUAL) 31 % (22-44); MONOS#(MANUAL) 0.52 x10^3/uL (0.3-2.7); MONOS% (MANUAL) 5 % (2-9); MYELOCYTES% (MANUAL) 1 % (0-0); SEG#(MANUAL) 4.47 x10^3/uL (1.8-6.8); SEGS% (MANUAL) 43 % (42-75)
[2018-01-05 05:49] LABS: POLYCHROMASIA 1+
[2018-01-05 05:50] LABS: OVALOCYTES 1+
[2018-01-05 05:51] LABS: <PLATELET ESTIMATE> ADEQUATE; <PLT MORPHOLOGY> NORMAL PLT MORPH
[2018-01-05] MEDS ORDERED: VASOPRESSIN 20 UNIT/ML, 1ML ONE (06:03)
[2018-01-05] MEDS ORDERED: SUCCINYLCHOLINE 20 MG/ML, 10ML ONE (06:03)
[2018-01-05] MEDS ORDERED: PHENYLEPHRINE 10 MG/ML ONE (06:03)
[2018-01-05] MEDS ORDERED: PROPOFOL 10 MG/ML, 20ML ONE (06:03)
[2018-01-05] MEDS ORDERED: ROCURONIUM 10 MG/ML,10ML ONE (06:03)
[2018-01-05] MEDS ORDERED: EPINEPHRINE 1 MG/ML, 1ML ONE (06:03)
[2018-01-05] MEDS ORDERED: CEFOTETAN 1 GM ONE (06:03)
[2018-01-05] MEDS ORDERED: FENTANYL PF 100 MCG/2ML ONE (06:04)
[2018-01-05] MEDS ORDERED: MIDAZOLAM 1 MG/ML, 2ML ONE (06:58)
[2018-01-05] MEDS ORDERED: VASOPRESSIN 100 UNIT in SODIUM CHLORIDE 0.9% 495 ML IV PRN ×2 (08:00→12:39)
[2018-01-05] MEDS ORDERED: HYDROmorphone 2 MG/ML, 1ML IV PRN (08:30)
[2018-01-05] MEDS ORDERED: ONDANSETRON 2MG/ML, 2ML IV PRN (08:30)
[2018-01-05] MEDS ORDERED: ONDANSETRON ODT 4 MG PO PRN (08:30)
[2018-01-05] MEDS: MAGNESIUM OXIDE 400 MG TABLET PO SCH (09:00)
[2018-01-05] MEDS: FOLIC ACID 1 MG TABLET PO SCH (09:00)
[2018-01-05] MEDS: GABAPENTIN 300 MG CAPSULE PO SCH ×3 (09:00→19:32)
[2018-01-05] MEDS: CHOLECALCIFEROL 5,000u TAB PO SCH (09:00)
[2018-01-05] MEDS: DULOXETINE 30 MG CAPSULE.DR PO SCH (09:00)
[2018-01-05] MEDS: POTASSIUM CHLORIDE 20 MEQ TAB.ER.PRT PO SCH (09:00)
[2018-01-05] MEDS: CEFOTETAN PMX 1GM/50ML 50 ML IVPB SCH ×2 (09:22→20:36)
[2018-01-05] MEDS ORDERED: NOREPINEPHRINE 1 MG/ML, 4ML ONE (09:50)
[2018-01-05] MEDS: NOREPINEPHRINE 4 MG in SODIUM CHLORIDE 0.9% 246 ML IV PRN ×2 (09:57→12:05)
[2018-01-05] MEDS: PANTOPRAZOLE 40 MG IV IVPush SCH ×2 (11:30→19:31)
[2018-01-05] MEDS: VASOPRESSIN 50 UNIT in SODIUM CHLORIDE 0.9% 247.5 ML IV PRN (11:31)
[2018-01-05] MEDS ORDERED: LACTATED RINGERS 1,000 ML IVBOLUS ONE ×2 (12:00→15:00)
[2018-01-05] MEDS ORDERED: ALBUMIN HUMAN 25% 100 ML IV ONE (12:00)
[2018-01-05] MEDS ORDERED: NOREPINEPHRINE 4 MG in SODIUM CHLORIDE 0.9% 246 ML IV PRN (12:39)
[2018-01-05] MEDS ORDERED: PROPOFOL 100 ML IV PRN (12:39)
[2018-01-05] MEDS ORDERED: EPINEPHRINE 1 MG in SODIUM CHLORIDE 0.9% 249 ML IV PRN (12:39)
[2018-01-05] MEDS ORDERED: GLUCAGON 1 MG IM PRN (13:00)
[2018-01-05] MEDS ORDERED: PHENYLEPHRINE 20 MG in SODIUM CHLORIDE 0.9% 248 ML IV PRN (13:00)
[2018-01-05] MEDS: ALBUTEROL/IPRATROPIUM 2.5MG/0.5MG, 3 ML INLINE SCH ×4 (13:00→22:48)
[2018-01-05] MEDS ORDERED: SENNOSIDES 8.8 MG/5 ML ORAL SOL NG PRN (13:00)
[2018-01-05] MEDS ORDERED: LIDOCAINE-MPF 1%, 2ML ENDO PRN (13:00)
[2018-01-05] MEDS ORDERED: LACTULOSE 20 GM/30 ML UDC NG PRN (13:00)
[2018-01-05] MEDS ORDERED: PHARMACY MAY ADJ FOR RENAL FX MC SCH (13:00)
[2018-01-05] MEDS ORDERED: SODIUM BICARB 8.4%, 50ML SYRINGE ONE (13:00)
[2018-01-05] MEDS ORDERED: DEXTROSE 4 GM TAB.CHEW PO PRN (13:00)
[2018-01-05] MEDS ORDERED: SENNA/DOCUSATE TABLET NG PRN (13:00)
[2018-01-05] MEDS ORDERED: BISACODYL 10 MG SUPP PR PRN (13:00)
[2018-01-05] MEDS ORDERED: FAMOTIDINE 20 MG/2 ML IV SCH (13:00)
[2018-01-05 13:11] LABS: ALANINE AMINOTRANSFERASE 871 U/L (12-78); ALBUMIN 1.8 g/dL (3.4-5.0); ANION GAP 20 mmol/L (5-15); CALCIUM 7.1 mg/dL (8.5-10.1); CHLORIDE 110 mmol/L (98-107)
[2018-01-05 13:26] LABS: ALKALINE PHOSPHATASE 113 U/L (45-117); BILIRUBIN,TOTAL 1.8 mg/dL (0.2-1.0); CREATININE 1.86 mg/dL (0.55-1.02); TOTAL PROTEIN 4.2 g/dL (6.4-8.2)
[2018-01-05 13:29] LABS: INTERNATIONAL NORMALIZED RATIO 1.75 (0.93-1.1)
[2018-01-05] MEDS ORDERED: SODIUM BICARB 8.4%, 50ML SYRINGE IVPush ONE ×2 (13:30)
[2018-01-05] MEDS: METRONIDAZOLE PMX 500MG/100ML 100 ML IV SCH ×2 (13:47→22:06)
[2018-01-05] MEDS ORDERED: SPIRONOLACTONE 100 MG TABLET PO PRN (14:00)
[2018-01-05] MEDS ORDERED: DEXTROSE 50%, 50ML SYRINGE IVPush ONE (14:00)
[2018-01-05] MEDS: MIDAZOLAM 1 MG/ML, 2ML IVPush PRN ×5 (14:14→23:12)
[2018-01-05] MEDS: FENTANYL PF 100 MCG/2ML IVPush PRN ×5 (14:14→23:12)
[2018-01-05] MEDS: LINEZOLID PMX 600MG/300ML 300 ML IV SCH (14:15)
[2018-01-05 14:26] LABS: MEAN CORPUSCULAR HEMOGLOBIN 28.4 pg (27.0-34.8); MEAN PLATELET VOLUME 10.8 fL (7.4-10.4); PLATELET COUNT 216 x10^3/uL (130-400); RED BLOOD COUNT 4.43 x10^6/uL (3.82-5.3)
[2018-01-05 14:33] LABS: MD YES
[2018-01-05 14:38] LABS: MICROSCOPIC INDICATED
[2018-01-05 14:49] LABS: CULTURE INDICATED? YES
[2018-01-05 14:50] LABS: ANISOCYTOSIS 1+; BAND#(MANUAL) 3.42 x10^3/uL; BANDS%(MANUAL) 30 % (0-7); LYMPH#(MANUAL) 2.17 x10^3/uL (1-3.4); LYMPHS% (MANUAL) 19 % (22-44); METAMYELOCYTES# (MANUAL) 0.34 x10^3/uL (0-0); METAMYELOCYTES% (MANUAL) 3 % (0-1); MONOS#(MANUAL) 0.57 x10^3/uL (0.3-2.7); MONOS% (MANUAL) 5 % (2-9); POLYCHROMASIA 1+; SEGS% (MANUAL) 43 % (42-75)
[2018-01-05 14:51] LABS: <PLATELET ESTIMATE> ADEQUATE; OVALOCYTES 1+
[2018-01-05 14:52] LABS: LARGE PLATELETS 1+
[2018-01-05] MEDS: SODIUM BICARBONATE 8.4% 150 MEQ in DEXTROSE 5% 1,000 ML IV SCH ×2 (15:03→22:07)
[2018-01-05] MEDS: NOREPINEPHRINE 8 MG in SODIUM CHLORIDE 0.9% 242 ML IV PRN ×2 (15:04→20:30)
[2018-01-05] MEDS ORDERED: LACTATED RINGERS 1,000 ML IV SCH (16:00)
[2018-01-05] MEDS: ALBUMIN HUMAN 25% 100 ML IV SCH (18:44)
[2018-01-05] MEDS: SODIUM CHLORIDE FLUSH 10ML SYR IVF SCH (19:31)
[2018-01-06] MEDS: LINEZOLID PMX 600MG/300ML 300 ML IV SCH ×2 (00:25→14:43)
[2018-01-06] MEDS: ALBUTEROL/IPRATROPIUM 2.5MG/0.5MG, 3 ML INLINE SCH (01:00)
[2018-01-06] MEDS: FENTANYL PF 100 MCG/2ML IVPush PRN ×7 (01:16→10:46)
[2018-01-06] MEDS: MIDAZOLAM 1 MG/ML, 2ML IVPush PRN ×2 (01:16→02:47)
[2018-01-06] MEDS: ALBUMIN HUMAN 25% 100 ML IV SCH (02:47)
[2018-01-06 04:10] VITALS: BP 96/52
[2018-01-06 04:30] LABS: ALANINE AMINOTRANSFERASE 668 U/L (12-78); ALBUMIN 2.4 g/dL (3.4-5.0); ANION GAP 14 mmol/L (5-15); CALCIUM 6.3 mg/dL (8.5-10.1); CHLORIDE 102 mmol/L (98-107); CREATININE 2.31 mg/dL (0.55-1.02)
[2018-01-06 04:49] LABS: ALKALINE PHOSPHATASE 60 U/L (45-117); BILIRUBIN,TOTAL 1.4 mg/dL (0.2-1.0); TOTAL PROTEIN 4.2 g/dL (6.4-8.2)
[2018-01-06 05:10] LABS: MD YES; MEAN CORPUSCULAR HEMOGLOBIN 29.3 pg (27.0-34.8); MEAN CORPUSCULAR HGB CONC 33.6 g/dL (32.4-35.8); MEAN CORPUSCULAR VOLUME 87.2 fL (80-100); PLATELET COUNT 105 x10^3/uL (130-400); RED BLOOD COUNT 2.85 x10^6/uL (3.82-5.3); RED CELL DISTRIBUTION WIDTH 20.4 % (9.6-15.2)
[2018-01-06 05:12] LABS: BANDS%(MANUAL) 24 % (0-7); EOS% (MANUAL) 1 % (1-7); LYMPHS% (MANUAL) 17 % (22-44); MONOS% (MANUAL) 2 % (2-9); SEGS% (MANUAL) 56 % (42-75)
[2018-01-06 05:13] LABS: <PLATELET ESTIMATE> DECREASED; ANISOCYTOSIS 1+; OVALOCYTES 1+; POLYCHROMASIA 1+
[2018-01-06 05:14] LABS: <PLT MORPHOLOGY> NORMAL PLT MORPH
[2018-01-06] MEDS: METRONIDAZOLE PMX 500MG/100ML 100 ML IV SCH ×3 (06:13→22:19)
[2018-01-06] MEDS: SODIUM BICARBONATE 8.4% 150 MEQ in DEXTROSE 5% 1,000 ML IV SCH (06:14)
[2018-01-06] MEDS ORDERED: ROCURONIUM 10MG/ML,5ML ONE (08:18)
[2018-01-06] MEDS ORDERED: MIDAZOLAM 1 MG/ML, 5ML ONE (08:18)
[2018-01-06] MEDS ORDERED: POTASSIUM CHLORIDE PMX 100 ML IV ONE (09:00)
[2018-01-06] MEDS: POTASSIUM CHLORIDE 20 MEQ TAB.ER.PRT PO SCH (09:00)
[2018-01-06] MEDS: GABAPENTIN 300 MG CAPSULE PO SCH ×3 (09:00→21:04)
[2018-01-06] MEDS ORDERED: MAGNESIUM SULFATE 4 GM in SODIUM CHLORIDE 0.9% 100 ML IV ONE (09:00)
[2018-01-06] MEDS: DULOXETINE 30 MG CAPSULE.DR PO SCH (09:00)
[2018-01-06] MEDS: CHOLECALCIFEROL 5,000u TAB PO SCH (09:00)
[2018-01-06] MEDS: HEPARIN 5,000 UNITS/ML, 1ML SQ SCH ×4 (09:00→21:05)
[2018-01-06] MEDS: FOLIC ACID 1 MG TABLET PO SCH (09:00)
[2018-01-06] MEDS: MAGNESIUM OXIDE 400 MG TABLET PO SCH (09:00)
[2018-01-06] MEDS: CEFOTETAN PMX 1GM/50ML 50 ML IVPB SCH ×2 (09:02→22:19)
[2018-01-06] MEDS: PANTOPRAZOLE 40 MG IV IVPush SCH ×2 (09:03→21:04)
[2018-01-06] MEDS ORDERED: MAGNESIUM SULFATE PMX 4GM/100M 100 ML IV ONE (09:04)
[2018-01-06] MEDS: SODIUM CHLORIDE FLUSH 10ML SYR IVF SCH ×2 (09:05→21:05)
[2018-01-06] MEDS: NOREPINEPHRINE 8 MG in SODIUM CHLORIDE 0.9% 242 ML IV PRN ×2 (09:54→22:21)
[2018-01-06] MEDS ORDERED: ADENOSINE 6 MG/2 ML ONE (10:00)
[2018-01-06] MEDS ORDERED: AMIODARONE 50 MG/ML, 3ML ONE (10:00)
[2018-01-06] MEDS ORDERED: FUROSEMIDE 40 MG/4 ML ONE (11:28)
[2018-01-06] MEDS ORDERED: FUROSEMIDE 20 MG/2 ML ONE (11:28)
[2018-01-06] MEDS ORDERED: FUROSEMIDE 100 MG/10 ML IV ONE (11:30)
[2018-01-06 11:44] LABS: SODIUM,URINE RANDOM < 5 mmol/L
[2018-01-06] MEDS ORDERED: FENTANYL 1500 MCG/30 ML PCA IV PRN (12:00)
[2018-01-06] MEDS ORDERED: LIDOCAINE-MPF 2%, 2ML ONE (15:03)
[2018-01-06] MEDS ORDERED: AMIODARONE 50 MG/ML, 3ML IVPush ONE (15:20)
[2018-01-06 15:47] LABS: ANION GAP 15 mmol/L (5-15); CALCIUM 6.5 mg/dL (8.5-10.1); CHLORIDE 99 mmol/L (98-107); CREATININE 2.62 mg/dL (0.55-1.02)
[2018-01-06] MEDS ORDERED: VITAMIN A 10,000 UNIT CAPSULE PO SCH (16:30)
[2018-01-06] MEDS ORDERED: DEXTROSE 50%, 50ML SYRINGE IVPush ONE (17:00)
[2018-01-06] MEDS ORDERED: DEXTROSE 5% 1,000 ML IV SCH (17:00)
[2018-01-06] MEDS ORDERED: FILTER 0.22 MICRON (AMIODARONE) IV PRN (18:00)
[2018-01-06] MEDS ORDERED: AMIODARONE 150 MG in DEXTROSE 5% 100 ML IV ONE (18:00)
[2018-01-06] MEDS ORDERED: ALBUMIN HUMAN 25% 50 ML IV SCH (20:30)
[2018-01-06] MEDS ORDERED: ALBUMIN HUMAN 25% 100 ML IV PRN (20:30)
[2018-01-06] MEDS ORDERED: ALBUMIN HUMAN 25% 50 ML IV PRN (23:00)
[2018-01-07] MEDS ORDERED: AMIODARONE 150 MG in DEXTROSE 5% 100 ML IV ONE (01:00)
[2018-01-07] MEDS: AMIODARONE 900 MG in DEXTROSE 5% 482 ML IV PRN (01:22)
[2018-01-07] MEDS: LINEZOLID PMX 600MG/300ML 300 ML IV SCH ×2 (01:23→13:11)
[2018-01-07 04:00] VITALS: BP 98/58
[2018-01-07 04:59] LABS: O2 FLOW 45 L/min
[2018-01-07 05:11] LABS: CHLORIDE 98 mmol/L (98-107)
[2018-01-07 05:13] LABS: MD YES; MEAN CORPUSCULAR HEMOGLOBIN 29.1 pg (27.0-34.8); MEAN CORPUSCULAR HGB CONC 33.8 g/dL (32.4-35.8); MEAN CORPUSCULAR VOLUME 86.1 fL (80-100); MEAN PLATELET VOLUME 9.9 fL (7.4-10.4); PLATELET COUNT 92 x10^3/uL (130-400); RED BLOOD COUNT 2.88 x10^6/uL (3.82-5.3); RED CELL DISTRIBUTION WIDTH 21.1 % (9.6-15.2)
[2018-01-07] MEDS: DEXTROSE 5% 1,000 ML IV SCH ×2 (05:30→18:26)
[2018-01-07] MEDS: NOREPINEPHRINE 8 MG in SODIUM CHLORIDE 0.9% 242 ML IV PRN (05:30)
[2018-01-07] MEDS: METRONIDAZOLE PMX 500MG/100ML 100 ML IV SCH ×3 (05:30→22:15)
[2018-01-07 05:38] LABS: ALANINE AMINOTRANSFERASE 617 U/L (12-78); ALBUMIN 2.8 g/dL (3.4-5.0); ALKALINE PHOSPHATASE 77 U/L (45-117); ANION GAP 18 mmol/L (5-15); BILIRUBIN,TOTAL 2.4 mg/dL (0.2-1.0); CALCIUM 7.3 mg/dL (8.5-10.1); CREATININE 2.33 mg/dL (0.55-1.02); TOTAL PROTEIN 4.7 g/dL (6.4-8.2)
[2018-01-07 06:38] LABS: ANISOCYTOSIS 1+; BANDS%(MANUAL) 20 % (0-7); BASOS#(MANUAL) 0.56 x10^3/uL (0-0.1); BASOS% (MANUAL) 4 % (0-1); LYMPHS% (MANUAL) 10 % (22-44); METAMYELOCYTES# (MANUAL) 0.28 x10^3/uL (0-0); METAMYELOCYTES% (MANUAL) 2 % (0-1); OVALOCYTES 1+; POLYCHROMASIA 1+; REACTIVE LYMPHS # (MANUAL) 0.28 x10^3/uL (0-0); REACTIVE LYMPHS % (MANUAL) 2 % (0-0); SEG#(MANUAL) 8.68 x10^3/uL (1.8-6.8); SEGS% (MANUAL) 62 % (42-75)
[2018-01-07 06:39] LABS: <PLATELET ESTIMATE> DECREASED; <PLT MORPHOLOGY> NORMAL PLT MORPH
[2018-01-07] MEDS: CHOLECALCIFEROL 5,000u TAB PO SCH (09:00)
[2018-01-07] MEDS: FOLIC ACID 1 MG TABLET PO SCH (09:00)
[2018-01-07] MEDS: GABAPENTIN 300 MG CAPSULE PO SCH ×3 (09:00→20:55)
[2018-01-07] MEDS: DULOXETINE 30 MG CAPSULE.DR PO SCH (09:00)
[2018-01-07] MEDS: MAGNESIUM OXIDE 400 MG TABLET PO SCH (09:00)
[2018-01-07] MEDS: POTASSIUM CHLORIDE 20 MEQ TAB.ER.PRT PO SCH (09:00)
[2018-01-07] MEDS ORDERED: ALBUMIN HUMAN 25% 100 ML IV ONE (09:30)
[2018-01-07] MEDS: VASOPRESSIN 50 UNIT in SODIUM CHLORIDE 0.9% 247.5 ML IV PRN (09:38)
[2018-01-07] MEDS: CEFOTETAN PMX 1GM/50ML 50 ML IVPB SCH ×2 (09:48→20:47)
[2018-01-07] MEDS: PANTOPRAZOLE 40 MG IV IVPush SCH ×2 (09:48→20:55)
[2018-01-07] MEDS: HEPARIN 5,000 UNITS/ML, 1ML SQ SCH ×2 (09:49→20:55)
[2018-01-07] MEDS: FENTANYL 1500 MCG/30 ML PCA IV PRN (11:44)
[2018-01-07] MEDS: NOREPINEPHRINE 16 MG in SODIUM CHLORIDE 0.9% 234 ML IV PRN ×2 (11:44→20:47)
[2018-01-07] MEDS: DEXTROSE 50%, 50ML SYRINGE IVPush PRN (13:17)
[2018-01-07] MEDS ORDERED: MIDAZOLAM 1 MG/ML, 5ML IVPush ONE ×2 (13:20→14:00)
[2018-01-07] MEDS ORDERED: ROCURONIUM 10 MG/ML,10ML IVPush ONE (13:20)
[2018-01-07] MEDS: SODIUM CHLORIDE FLUSH 10ML SYR IVF SCH ×2 (13:54→20:48)
[2018-01-07] MEDS ORDERED: ALBUTEROL/IPRATROPIUM 2.5MG/0.5MG, 3 ML INLINE PRN (14:00)
[2018-01-07] MEDS ORDERED: ALBUTEROL/IPRATROPIUM 2.5MG/0.5MG, 3 ML INLINE SCH (14:00)
[2018-01-07] MEDS ORDERED: FENTANYL PF 100 MCG/2ML IVPush PRN (14:30)
[2018-01-07] MEDS ORDERED: SENNOSIDES 8.8 MG/5 ML ORAL SOL NG PRN (14:30)
[2018-01-07] MEDS ORDERED: LACTULOSE 20 GM/30 ML UDC NG PRN (14:30)
[2018-01-07] MEDS: ALBUTEROL/IPRATROPIUM 2.5MG/0.5MG, 3 ML INLINE SCH ×3 (14:30→22:25)
[2018-01-07] MEDS ORDERED: LIDOCAINE-MPF 1%, 2ML ENDO PRN (14:30)
[2018-01-07] MEDS ORDERED: MIDAZOLAM 1 MG/ML, 2ML IVPush PRN (14:30)
[2018-01-07] MEDS ORDERED: PHARMACY MAY ADJ FOR RENAL FX MC SCH (14:30)
[2018-01-07] MEDS ORDERED: SENNA/DOCUSATE TABLET NG PRN (14:30)
[2018-01-07] MEDS ORDERED: BISACODYL 10 MG SUPP PR PRN (14:30)
[2018-01-07] MEDS: MIDAZOLAM HCL 25 MG in SODIUM CHLORIDE 0.9% 245 ML IV PRN ×2 (15:20→22:15)
[2018-01-08] MEDS: AMIODARONE 900 MG in DEXTROSE 5% 482 ML IV PRN (01:02)
[2018-01-08] MEDS: LINEZOLID PMX 600MG/300ML 300 ML IV SCH ×2 (01:02→14:22)
[2018-01-08] MEDS: ALBUTEROL/IPRATROPIUM 2.5MG/0.5MG, 3 ML INLINE SCH ×6 (02:30→22:25)
[2018-01-08 04:00] VITALS: BP 105/49
[2018-01-08 04:27] LABS: MEAN CORPUSCULAR HEMOGLOBIN 29.4 pg (27.0-34.8); MEAN CORPUSCULAR HGB CONC 33.4 g/dL (32.4-35.8); MEAN CORPUSCULAR VOLUME 87.9 fL (80-100); MEAN PLATELET VOLUME 9.6 fL (7.4-10.4); PLATELET COUNT 74 x10^3/uL (130-400); RED BLOOD COUNT 2.48 x10^6/uL (3.82-5.3); RED CELL DISTRIBUTION WIDTH 21.1 % (9.6-15.2)
[2018-01-08 04:31] LABS: MD YES
[2018-01-08 04:34] LABS: ALANINE AMINOTRANSFERASE 557 U/L (12-78); ANION GAP 20 mmol/L (5-15); CALCIUM 7.4 mg/dL (8.5-10.1); CHLORIDE 96 mmol/L (98-107); CREATININE 2.74 mg/dL (0.55-1.02)
[2018-01-08 04:35] LABS: ALBUMIN 3.2 g/dL (3.4-5.0); TRIGLYCERIDES 39 mg/dL (50-200)
[2018-01-08 04:37] LABS: ALKALINE PHOSPHATASE 85 U/L (45-117); BILIRUBIN,TOTAL 3.5 mg/dL (0.2-1.0)
[2018-01-08 04:57] LABS: <PLATELET ESTIMATE> DECREASED; <PLT MORPHOLOGY> NORMAL PLT MORPH; ANISOCYTOSIS 1+; BANDS%(MANUAL) 9 % (0-7); EOS#(MANUAL) 0.62 x10^3/uL (0.0-0.4); EOS% (MANUAL) 4 % (1-7); LYMPH#(MANUAL) 1.86 x10^3/uL (1-3.4); LYMPHS% (MANUAL) 12 % (22-44); MONOS#(MANUAL) 0.62 x10^3/uL (0.3-2.7); MONOS% (MANUAL) 4 % (2-9); OVALOCYTES 1+; POLYCHROMASIA 1+; SEG#(MANUAL) 11.01 x10^3/uL (1.8-6.8); SEGS% (MANUAL) 71 % (42-75)
[2018-01-08] MEDS: NOREPINEPHRINE 16 MG in SODIUM CHLORIDE 0.9% 234 ML IV PRN ×2 (05:16→14:37)
[2018-01-08] MEDS: METRONIDAZOLE PMX 500MG/100ML 100 ML IV SCH (05:58)
[2018-01-08] MEDS: GABAPENTIN 300 MG CAPSULE PO SCH ×3 (09:00→21:40)
[2018-01-08] MEDS: POTASSIUM CHLORIDE 20 MEQ TAB.ER.PRT PO SCH (09:00)
[2018-01-08] MEDS: FOLIC ACID 1 MG TABLET PO SCH (09:00)
[2018-01-08] MEDS: DULOXETINE 30 MG CAPSULE.DR PO SCH (09:00)
[2018-01-08] MEDS: CEFOTETAN PMX 1GM/50ML 50 ML IVPB SCH (09:00)
[2018-01-08] MEDS: CHOLECALCIFEROL 5,000u TAB PO SCH (09:00)
[2018-01-08] MEDS: MAGNESIUM OXIDE 400 MG TABLET PO SCH (09:00)
[2018-01-08] MEDS: DEXTROSE 5% 1,000 ML IV SCH (10:18)
[2018-01-08] MEDS: PANTOPRAZOLE 40 MG IV IVPush SCH ×2 (10:19→21:39)
[2018-01-08] MEDS: SODIUM CHLORIDE FLUSH 10ML SYR IVF SCH ×2 (10:19→21:39)
[2018-01-08] MEDS: HEPARIN 5,000 UNITS/ML, 1ML SQ SCH ×2 (10:19→21:39)
[2018-01-08] MEDS ORDERED: DEXTROSE 10% 1,000 ML IV SCH (10:30)
[2018-01-08] MEDS ORDERED: PIPERACILLIN/TAZO/PMX 3.375GM 50 ML IV SCH (13:30)
[2018-01-08] MEDS: FENTANYL 1500 MCG/30 ML PCA IV PRN (13:51)
[2018-01-08] MEDS: DEXTROSE 50%, 50ML SYRINGE IVPush PRN (14:33)
[2018-01-08] MEDS: PIPERACILLIN/TAZO 2.25 GM in NS 50 ML IV SCH (21:39)
[2018-01-08] MEDS ORDERED: PIPERACILLIN/TAZO 2.25 GM in NS 50 ML IV SCH (22:00)
[2018-01-09] VITALS (12 sets, daily range): BP systolic 85–106; BP diastolic 41–60
[2018-01-09] MEDS: NOREPINEPHRINE 16 MG in SODIUM CHLORIDE 0.9% 234 ML IV PRN ×3 (00:17→18:37)
[2018-01-09] MEDS: DEXTROSE 50%, 50ML SYRINGE IVPush PRN ×3 (00:18→08:11)
[2018-01-09] MEDS: LINEZOLID PMX 600MG/300ML 300 ML IV SCH ×2 (00:24→13:42)
[2018-01-09] MEDS: ALBUTEROL/IPRATROPIUM 2.5MG/0.5MG, 3 ML INLINE SCH ×6 (02:37→22:04)
[2018-01-09 05:20] LABS: ANION GAP 27 mmol/L (5-15); CALCIUM 7.7 mg/dL (8.5-10.1); CHLORIDE 97 mmol/L (98-107); CREATININE 3.64 mg/dL (0.55-1.02)
[2018-01-09] MEDS: PIPERACILLIN/TAZO 2.25 GM in NS 50 ML IV SCH ×3 (05:54→22:10)
[2018-01-09 07:00] LABS: MD YES
[2018-01-09 07:12] LABS: MEAN CORPUSCULAR HEMOGLOBIN 30.4 pg (27.0-34.8); MEAN CORPUSCULAR HGB CONC 33.9 g/dL (32.4-35.8); MEAN CORPUSCULAR VOLUME 89.5 fL (80-100); MEAN PLATELET VOLUME 9.6 fL (7.4-10.4); PLATELET COUNT 66 x10^3/uL (130-400); RED BLOOD COUNT 2.01 x10^6/uL (3.82-5.3); RED CELL DISTRIBUTION WIDTH 21.3 % (9.6-15.2)
[2018-01-09 07:21] LABS: BAND#(MANUAL) 1.69 x10^3/uL; BANDS%(MANUAL) 9 % (0-7); EOS#(MANUAL) 0.38 x10^3/uL (0.0-0.4); EOS% (MANUAL) 2 % (1-7); LYMPH#(MANUAL) 3.57 x10^3/uL (1-3.4); LYMPHS% (MANUAL) 19 % (22-44); METAMYELOCYTES# (MANUAL) 0.19 x10^3/uL (0-0); METAMYELOCYTES% (MANUAL) 1 % (0-1); MONOS#(MANUAL) 1.32 x10^3/uL (0.3-2.7); MONOS% (MANUAL) 7 % (2-9); NRBC % (MANUAL) 3 % (0-1); SEG#(MANUAL) 11.66 x10^3/uL (1.8-6.8); SEGS% (MANUAL) 62 % (42-75)
[2018-01-09 07:22] LABS: <PLATELET ESTIMATE> DECREASED; <PLT MORPHOLOGY> NORMAL PLT MORPH; ANISOCYTOSIS 1+; OVALOCYTES 1+; POLYCHROMASIA 1+; TOXIC GRAN 1+
[2018-01-09 07:23] LABS: ECHINOCYTES 1+; MICROCYTOSIS 1+
[2018-01-09 07:24] LABS: ACANTHOCYTES 1+; PMNS WITH VACUOLES 1+
[2018-01-09 07:29] LABS: SCHISTOCYTES 1+
[2018-01-09] MEDS ORDERED: SODIUM BICARB 8.4%, 50ML SYRINGE ONE (07:59)
[2018-01-09] MEDS: DEXTROSE 10% 1,000 ML IV SCH ×2 (08:00→16:25)
[2018-01-09] MEDS ORDERED: FENTANYL PF 2,500 MCG in SODIUM CHLORIDE 0.9% 200 ML IV PRN (08:00)
[2018-01-09] MEDS: SODIUM CHLORIDE FLUSH 10ML SYR IVF SCH ×2 (09:00→21:19)
[2018-01-09] MEDS: POTASSIUM CHLORIDE 20 MEQ TAB.ER.PRT PO SCH (09:00)
[2018-01-09] MEDS: FOLIC ACID 1 MG TABLET PO SCH (09:00)
[2018-01-09] MEDS: GABAPENTIN 300 MG CAPSULE PO SCH ×3 (09:00→21:19)
[2018-01-09] MEDS: HEPARIN 5,000 UNITS/ML, 1ML SQ SCH ×2 (09:00→21:19)
[2018-01-09] MEDS ORDERED: SODIUM CHLORIDE 0.9%, 500ML IVBOLUS ONE (09:00)
[2018-01-09] MEDS: CHOLECALCIFEROL 5,000u TAB PO SCH (09:00)
[2018-01-09] MEDS: DULOXETINE 30 MG CAPSULE.DR PO SCH (09:00)
[2018-01-09] MEDS ORDERED: SODIUM BICARB 8.4%, 50ML SYRINGE IVPush ONE ×2 (09:00→21:00)
[2018-01-09] MEDS: MAGNESIUM OXIDE 400 MG TABLET PO SCH (09:00)
[2018-01-09] MEDS: PANTOPRAZOLE 40 MG IV IVPush SCH ×2 (10:15→21:19)
[2018-01-09] MEDS ORDERED: VECURONIUM 10 MG ONE (11:59)
[2018-01-09 12:49] LABS: MEAN CORPUSCULAR HEMOGLOBIN 30.2 pg (27.0-34.8); MEAN CORPUSCULAR HGB CONC 33.4 g/dL (32.4-35.8); MEAN CORPUSCULAR VOLUME 90.3 fL (80-100); RED BLOOD COUNT 2.68 x10^6/uL (3.82-5.3); RED CELL DISTRIBUTION WIDTH 17.8 % (9.6-15.2)
[2018-01-09 12:54] LABS: MD YES
[2018-01-09 12:57] LABS: MEAN PLATELET VOLUME 9.9 fL (7.4-10.4); PLATELET COUNT 58 x10^3/uL (130-400)
[2018-01-09] MEDS ORDERED: OMNIPAQUE 350 MG/ML, 150 ML BOTTLE ONE (12:58)
[2018-01-09 13:15] LABS: BAND#(MANUAL) 2.43 x10^3/uL; BANDS%(MANUAL) 11 % (0-7); EOS#(MANUAL) 0.44 x10^3/uL (0.0-0.4); EOS% (MANUAL) 2 % (1-7); LYMPH#(MANUAL) 3.76 x10^3/uL (1-3.4); LYMPHS% (MANUAL) 17 % (22-44); METAMYELOCYTES# (MANUAL) 1.33 x10^3/uL (0-0); METAMYELOCYTES% (MANUAL) 6 % (0-1); MYELOCYTES# (MANUAL) 0.88 x10^3/uL (0-0); MYELOCYTES% (MANUAL) 4 % (0-0); NRBC % (MANUAL) 8 % (0-1); PROGRANULOCYTES# (MANUAL) 0.22 x10^3/uL (0-0); PROGRANULOCYTES% (MANUAL) 1 % (0-0); SEG#(MANUAL) 13.04 x10^3/uL (1.8-6.8); SEGS% (MANUAL) 59 % (42-75)
[2018-01-09 13:16] LABS: ANISOCYTOSIS 1+; MICROCYTOSIS 1+; OVALOCYTES 1+; POLYCHROMASIA 1+
[2018-01-09 13:17] LABS: <PLATELET ESTIMATE> DECREASED; <PLT MORPHOLOGY> NORMAL PLT MORPH; PMNS WITH VACUOLES 1+; TOXIC GRAN 1+
[2018-01-09] MEDS ORDERED: FLUCONAZOLE 200 MG/100 ML 100 ML IV SCH (13:30)
[2018-01-09] MEDS ORDERED: POTASSIUM CHLORIDE 40 MEQ in SODIUM CHLORIDE 0.9% 100 ML IV ONE (13:30)
[2018-01-09 14:09] LABS: PROTHROMBIN TIME 40.5 Seconds (9.6-11.5)
[2018-01-09] MEDS: MIDAZOLAM HCL 25 MG in SODIUM CHLORIDE 0.9% 245 ML IV PRN ×2 (14:45→22:19)
[2018-01-09 17:20] LABS: MEAN CORPUSCULAR HEMOGLOBIN 28.7 pg (27.0-34.8); MEAN CORPUSCULAR HGB CONC 32.4 g/dL (32.4-35.8); MEAN CORPUSCULAR VOLUME 88.7 fL (80-100); MEAN PLATELET VOLUME 9.9 fL (7.4-10.4); RED BLOOD COUNT 2.37 x10^6/uL (3.82-5.3); RED CELL DISTRIBUTION WIDTH 17.2 % (9.6-15.2)
[2018-01-09 17:22] LABS: PLATELET COUNT 43 x10^3/uL (130-400)
[2018-01-09 17:24] LABS: MD YES
[2018-01-09 17:28] LABS: BAND#(MANUAL) 7.88 x10^3/uL; BANDS%(MANUAL) 39 % (0-7); LYMPH#(MANUAL) 2.42 x10^3/uL (1-3.4); LYMPHS% (MANUAL) 12 % (22-44); METAMYELOCYTES% (MANUAL) 2 % (0-1); MONOS#(MANUAL) 1.01 x10^3/uL (0.3-2.7); MONOS% (MANUAL) 5 % (2-9); MYELOCYTES% (MANUAL) 2 % (0-0); NRBC % (MANUAL) 5 % (0-1); SEG#(MANUAL) 8.08 x10^3/uL (1.8-6.8); SEGS% (MANUAL) 40 % (42-75)
[2018-01-09 17:29] LABS: <PLATELET ESTIMATE> DECREASED; ACANTHOCYTES 1+; ANISOCYTOSIS 1+; ECHINOCYTES 1+; LARGE PLATELETS 1+; MICROCYTOSIS 1+; OVALOCYTES 1+; PMNS WITH VACUOLES 1+; POLYCHROMASIA 1+; TOXIC GRAN 1+
[2018-01-09] MEDS: LACTULOSE 10 GM/15 ML UDC PO SCH (21:18)
[2018-01-09] MEDS: SODIUM BICARBONATE 8.4% 150 MEQ in DEXTROSE 5% 1,000 ML IV SCH (21:20)
[2018-01-09 22:36] LABS: MEAN CORPUSCULAR HGB CONC 34.1 g/dL (32.4-35.8); MEAN CORPUSCULAR VOLUME 88.2 fL (80-100); MEAN PLATELET VOLUME 9.4 fL (7.4-10.4); PLATELET COUNT 94 x10^3/uL (130-400); RED BLOOD COUNT 3.06 x10^6/uL (3.82-5.3); RED CELL DISTRIBUTION WIDTH 17.6 % (9.6-15.2)
[2018-01-09 23:05] LABS: MD YES
[2018-01-09 23:16] LABS: ANISOCYTOSIS 1+; BAND#(MANUAL) 1.88 x10^3/uL; BANDS%(MANUAL) 9 % (0-7); LYMPH#(MANUAL) 2.93 x10^3/uL (1-3.4); LYMPHS% (MANUAL) 14 % (22-44); MICROCYTOSIS 1+; MONOS#(MANUAL) 0.84 x10^3/uL (0.3-2.7); MONOS% (MANUAL) 4 % (2-9); NRBC % (MANUAL) 10 % (0-1); POLYCHROMASIA 1+; SEG#(MANUAL) 15.26 x10^3/uL (1.8-6.8); SEGS% (MANUAL) 73 % (42-75)
[2018-01-09 23:17] LABS: <PLATELET ESTIMATE> DECREASED; <PLT MORPHOLOGY> NORMAL PLT MORPH; ACANTHOCYTES 1+; OVALOCYTES 1+; PMNS WITH VACUOLES 1+; TOXIC GRAN 1+
[2018-01-10] VITALS (11 sets, daily range): BP systolic 50–110; BP diastolic 34–68
[2018-01-10] MEDS: LINEZOLID PMX 600MG/300ML 300 ML IV SCH (00:40)
[2018-01-10] MEDS: ALBUTEROL/IPRATROPIUM 2.5MG/0.5MG, 3 ML INLINE SCH ×2 (02:15→07:17)
[2018-01-10] MEDS: LACTULOSE 10 GM/15 ML UDC PO SCH ×2 (02:21→08:00)
[2018-01-10 02:26] LABS: MEAN CORPUSCULAR HEMOGLOBIN 29.8 pg (27.0-34.8); MEAN CORPUSCULAR HGB CONC 33.4 g/dL (32.4-35.8); MEAN CORPUSCULAR VOLUME 89.2 fL (80-100); MEAN PLATELET VOLUME 9.6 fL (7.4-10.4); PLATELET COUNT 80 x10^3/uL (130-400); RED BLOOD COUNT 2.99 x10^6/uL (3.82-5.3)
[2018-01-10 02:27] LABS: RED CELL DISTRIBUTION WIDTH 17.9 % (9.6-15.2)
[2018-01-10 02:50] LABS: MD YES
[2018-01-10 02:56] LABS: ACANTHOCYTES 1+; ANISOCYTOSIS 1+; BAND#(MANUAL) 3.62 x10^3/uL; BANDS%(MANUAL) 18 % (0-7); LYMPH#(MANUAL) 4.22 x10^3/uL (1-3.4); LYMPHS% (MANUAL) 21 % (22-44); METAMYELOCYTES% (MANUAL) 3 % (0-1); MICROCYTOSIS 1+; MONOS#(MANUAL) 1.61 x10^3/uL (0.3-2.7); MONOS% (MANUAL) 8 % (2-9); NRBC % (MANUAL) 10 % (0-1); OVALOCYTES 1+; PMNS WITH VACUOLES 1+; POLYCHROMASIA 1+; SEG#(MANUAL) 10.05 x10^3/uL (1.8-6.8); SEGS% (MANUAL) 50 % (42-75); TOXIC GRAN 1+
[2018-01-10 02:57] LABS: <PLATELET ESTIMATE> DECREASED; <PLT MORPHOLOGY> NORMAL PLT MORPH
[2018-01-10] MEDS ORDERED: HYDROCORTISONE 100 MG INJ. IVPush ONE (03:00)
[2018-01-10] MEDS: NOREPINEPHRINE 16 MG in SODIUM CHLORIDE 0.9% 234 ML IV PRN (03:30)
[2018-01-10] MEDS ORDERED: SODIUM BICARBONATE 1 MEQ/ML, 50ML VIAL IVPush ONE (04:00)
[2018-01-10 05:22] LABS: ANION GAP 34 mmol/L (5-15); CALCIUM 7.2 mg/dL (8.5-10.1); CHLORIDE 92 mmol/L (98-107)
[2018-01-10 05:24] LABS: CREATININE 3.02 mg/dL (0.55-1.02)
[2018-01-10 05:34] LABS: TRIGLYCERIDES 57 mg/dL (50-200)
[2018-01-10 05:38] LABS: MEAN CORPUSCULAR HEMOGLOBIN 29.5 pg (27.0-34.8); MEAN CORPUSCULAR HGB CONC 32.9 g/dL (32.4-35.8); MEAN CORPUSCULAR VOLUME 89.6 fL (80-100); MEAN PLATELET VOLUME 9.6 fL (7.4-10.4); PLATELET COUNT 71 x10^3/uL (130-400); RED BLOOD COUNT 2.89 x10^6/uL (3.82-5.3); RED CELL DISTRIBUTION WIDTH 18.3 % (9.6-15.2)
[2018-01-10] MEDS: SODIUM BICARBONATE 8.4% 150 MEQ in DEXTROSE 5% 1,000 ML IV SCH (05:38)
[2018-01-10] MEDS: PIPERACILLIN/TAZO 2.25 GM in NS 50 ML IV SCH (05:38)
[2018-01-10] MEDS: MIDAZOLAM HCL 25 MG in SODIUM CHLORIDE 0.9% 245 ML IV PRN (05:56)
[2018-01-10] MEDS: DEXTROSE 10% 1,000 ML IV SCH (05:56)
[2018-01-10 06:05] LABS: MD YES
[2018-01-10 06:07] LABS: BAND#(MANUAL) 1.54 x10^3/uL; BANDS%(MANUAL) 8 % (0-7); LYMPH#(MANUAL) 4.83 x10^3/uL (1-3.4); LYMPHS% (MANUAL) 25 % (22-44); METAMYELOCYTES# (MANUAL) 0.19 x10^3/uL (0-0); METAMYELOCYTES% (MANUAL) 1 % (0-1); MONOS#(MANUAL) 0.97 x10^3/uL (0.3-2.7); MONOS% (MANUAL) 5 % (2-9); MYELOCYTES# (MANUAL) 0.19 x10^3/uL (0-0); MYELOCYTES% (MANUAL) 1 % (0-0); SEG#(MANUAL) 11.58 x10^3/uL (1.8-6.8); SEGS% (MANUAL) 60 % (42-75)
[2018-01-10 06:10] LABS: ANISOCYTOSIS 1+; MICROCYTOSIS 1+; NRBC % (MANUAL) 18 % (0-1); OVALOCYTES 1+; POLYCHROMASIA 1+
[2018-01-10 06:11] LABS: ECHINOCYTES 1+
[2018-01-10 06:12] LABS: <PLATELET ESTIMATE> DECREASED; <PLT MORPHOLOGY> NORMAL PLT MORPH
[2018-01-10] MEDS ORDERED: LORazepam 2 MG/ML, 1ML IVPush PRN (07:00)
[2018-01-10] MEDS ORDERED: PHENYLEPHRINE 10 MG/ML ONE (08:51)
[2018-01-10] MEDS: POTASSIUM CHLORIDE 20 MEQ TAB.ER.PRT PO SCH (09:00)
[2018-01-10] MEDS: MAGNESIUM OXIDE 400 MG TABLET PO SCH (09:00)
[2018-01-10] MEDS: CHOLECALCIFEROL 5,000u TAB PO SCH (09:00)
[2018-01-10] MEDS: GABAPENTIN 300 MG CAPSULE PO SCH (09:00)
[2018-01-10] MEDS: DULOXETINE 30 MG CAPSULE.DR PO SCH (09:00)
[2018-01-10] MEDS: HEPARIN 5,000 UNITS/ML, 1ML SQ SCH (09:00)
[2018-01-10] MEDS ORDERED: PHENYLEPHRINE 80 MG in SODIUM CHLORIDE 0.9% 242 ML IV PRN (09:00)
[2018-01-10] MEDS: FOLIC ACID 1 MG TABLET PO SCH (09:00)
[2018-01-10] MEDS ORDERED: ALBUMIN HUMAN 25% 100 ML ONE (09:12)
[2018-01-10] MEDS ORDERED: SODIUM BICARBONATE 1 MEQ/ML, 50ML VIAL ONE (09:12)
[2018-01-10] MEDS ORDERED: ALBUMIN HUMAN 5% 500 ML ONE (09:12)
[2018-01-10] MEDS ORDERED: DEXTROSE 50%, 50ML SYRINGE ONE (09:13)
[2018-01-10] MEDS ORDERED: CALCIUM CHLORIDE 10%, 10ML SYR ONE ×2 (09:13)
[2018-01-10] MEDS ORDERED: MIDAZOLAM 1 MG/ML, 2ML ONE (09:26)
[2018-01-10] MEDS ORDERED: ROCURONIUM 10 MG/ML,10ML ONE (09:44)
[2018-01-10] MEDS ORDERED: SODIUM BICARB 8.4%, 50ML SYRINGE ONE ×3 (09:44→10:52)
[2018-01-10 09:50] LABS: MD YES
[2018-01-10 09:52] LABS: MEAN CORPUSCULAR HEMOGLOBIN 29.5 pg (27.0-34.8); MEAN CORPUSCULAR HGB CONC 33.4 g/dL (32.4-35.8); MEAN CORPUSCULAR VOLUME 88.3 fL (80-100); MEAN PLATELET VOLUME 9.5 fL (7.4-10.4); PLATELET COUNT 67 x10^3/uL (130-400); RED BLOOD COUNT 2.82 x10^6/uL (3.82-5.3); RED CELL DISTRIBUTION WIDTH 18.3 % (9.6-15.2)
[2018-01-10] MEDS ORDERED: SODIUM BICARBONATE 8.4% 150 MEQ in DEXTROSE 5% 1,000 ML IV SCH (10:00)
[2018-01-10 10:05] LABS: BAND#(MANUAL) 1.96 x10^3/uL; BANDS%(MANUAL) 9 % (0-7); LYMPH#(MANUAL) 3.49 x10^3/uL (1-3.4); LYMPHS% (MANUAL) 16 % (22-44); METAMYELOCYTES# (MANUAL) 0.22 x10^3/uL (0-0); METAMYELOCYTES% (MANUAL) 1 % (0-1); MONOS#(MANUAL) 0.87 x10^3/uL (0.3-2.7); MONOS% (MANUAL) 4 % (2-9); MYELOCYTES# (MANUAL) 0.44 x10^3/uL (0-0); MYELOCYTES% (MANUAL) 2 % (0-0); NRBC % (MANUAL) 19 % (0-1); SEG#(MANUAL) 14.82 x10^3/uL (1.8-6.8); SEGS% (MANUAL) 68 % (42-75)
[2018-01-10 10:06] LABS: ANISOCYTOSIS 1+; ECHINOCYTES 1+; MICROCYTOSIS 1+; OVALOCYTES 1+
[2018-01-10 10:11] LABS: ACANTHOCYTES 1+; CRENATED 1+; TOXIC GRAN 1+
[2018-01-10 10:23] LABS: <PLATELET ESTIMATE> DECREASED; <PLT MORPHOLOGY> NORMAL PLT MORPH
[2018-01-10] MEDS ORDERED: EPINEPHRINE 1 MG/ML, 1ML ONE ×3 (10:41→11:44)
[2018-01-10] MEDS ORDERED: HYDROCORTISONE 100 MG INJ. IVPush SCH (11:00)
[2018-01-10] MEDS ORDERED: SODIUM BICARB 8.4%, 50ML SYRINGE IVPush ONE (11:30)
[2018-01-10] MEDS ORDERED: CALCIUM GLUCONATE 4.6 MEQ in SODIUM CHLORIDE 0.9% 50 ML IV ONE (12:00)
[2018-01-10] MEDS ORDERED: EPINEPHRINE 4 MG in SODIUM CHLORIDE 0.9% 246 ML IV PRN (12:30)
[2018-01-10] MEDS ORDERED: morphine SULFATE 10 MG/ML, 1ML ONE (13:29)
[2018-01-10] MEDS ORDERED: NOREPINEPHRINE 1 MG/ML, 4ML ONE (14:26)
[2018-01-10] MEDS ORDERED: LORazepam 2 MG/ML, 1ML IV PRN (14:30)
[2018-01-10] MEDS ORDERED: LORazepam 2 MG/ML, 1ML IV ONE (14:30)
[2018-01-10] MEDS ORDERED: morphine SULFATE 10 MG/ML, 1ML IV ONE (14:30)
[2018-01-10] MEDS ORDERED: ATROPINE OPHTH SOLN 1%, 2ML PO PRN (14:30)
[2018-01-10] MEDS ORDERED: morphine SULFATE 10 MG/ML, 1ML IV PRN (14:30)
[2018-01-10] MEDS ORDERED: EPINEPHRINE SYRINGE 0.1 MG/ML, 10ML ONE (18:15)
== END 2018-01-10 13:44 | disposition expired | DRG 353 ==
LOC: OUT 09:48 → OBSVTOIN 14:16 → ORIP 14:16 → 4NOR 15:36 → CSU 01-05 07:26 → CCU 01-07 11:20
PROVIDERS: ADMIT Surgery; ATTEND Surgery
PROC: 8E0W4CZ Robotic Assisted Procedure of Trunk Region, Percutaneous Endoscopic Approach (ICD-10-PCS; 2018-01-04)
PROC: 0WUF4JZ Supplement Abdominal Wall with Synthetic Substitute, Percutaneous Endoscopic Approach (ICD-10-PCS; principal; 2018-01-04 11:30)
PROC: 0W9G0ZZ Drainage of Peritoneal Cavity, Open Approach (ICD-10-PCS; 2018-01-05)
PROC: 0WPF0JZ Removal of Synthetic Substitute from Abdominal Wall, Open Approach (ICD-10-PCS; 2018-01-05)
PROC: 30233N1 Transfusion of Nonautologous Red Blood Cells into Peripheral Vein, Percutaneous Approach (ICD-10-PCS; 2018-01-05)
PROC: 30233R1 Transfusion of Nonautologous Platelets into Peripheral Vein, Percutaneous Approach (ICD-10-PCS; 2018-01-05)
PROC: 0T9B70Z Drainage of Bladder with Drainage Device, Via Natural or Artificial Opening (ICD-10-PCS; 2018-01-05)
PROC: 5A1935Z Respiratory Ventilation, Less than 24 Consecutive Hours (ICD-10-PCS; 2018-01-06)
PROC: 0BH18EZ Insertion of Endotracheal Airway into Trachea, Via Natural or Artificial Opening Endoscopic (ICD-10-PCS; 2018-01-06)
PROC: 05HN33Z Insertion of Infusion Device into Left Internal Jugular Vein, Percutaneous Approach (ICD-10-PCS; 2018-01-06)
PROC: B544ZZA Ultrasonography of Left Jugular Veins, Guidance (ICD-10-PCS; 2018-01-06)
PROC: 5A1D70Z Performance of Urinary Filtration, Intermittent, Less than 6 Hours Per Day (ICD-10-PCS; 2018-01-06)
PROC: 5A1D70Z Performance of Urinary Filtration, Intermittent, Less than 6 Hours Per Day (ICD-10-PCS; 2018-01-07)
PROC: 5A1945Z Respiratory Ventilation, 24-96 Consecutive Hours (ICD-10-PCS; 2018-01-08)
PROC: 0BH18EZ Insertion of Endotracheal Airway into Trachea, Via Natural or Artificial Opening Endoscopic (ICD-10-PCS; 2018-01-08)
PROC: 5A1D70Z Performance of Urinary Filtration, Intermittent, Less than 6 Hours Per Day (ICD-10-PCS; 2018-01-08)
PROC: 5A1D70Z Performance of Urinary Filtration, Intermittent, Less than 6 Hours Per Day (ICD-10-PCS; 2018-01-09)
PROC: 2W13X6Z Compression of Abdominal Wall using Pressure Dressing (ICD-10-PCS; 2018-01-10)
PROC: 30233M1 Transfusion of Nonautologous Plasma Cryoprecipitate into Peripheral Vein, Percutaneous Approach (ICD-10-PCS; 2018-01-10)
PROC: 30233K1 Transfusion of Nonautologous Frozen Plasma into Peripheral Vein, Percutaneous Approach (ICD-10-PCS; 2018-01-10)
PROC: 5A1D70Z Performance of Urinary Filtration, Intermittent, Less than 6 Hours Per Day (ICD-10-PCS; 2018-01-10)
DX: K94.23 Gastrostomy malfunction (principal); E43 Unspecified severe protein-calorie malnutrition; K25.5 Chronic or unspecified gastric ulcer with perforation; N17.0 Acute kidney failure with tubular necrosis; K76.7 Hepatorenal syndrome; D65 Disseminated intravascular coagulation [defibrination syndrome]; B17.9 Acute viral hepatitis, unspecified; Z99.11 Dependence on respirator [ventilator] status; T79.A3XA Traumatic compartment syndrome of abdomen, initial encounter; I42.9 Cardiomyopathy, unspecified; I47.1 Supraventricular tachycardia; K76.6 Portal hypertension; D68.2 Hereditary deficiency of other clotting factors; K91.82 Postprocedural hepatic failure; K66.0 Peritoneal adhesions (postprocedural) (postinfection); F10.10 Alcohol abuse, uncomplicated; K76.0 Fatty (change of) liver, not elsewhere classified; E16.2 Hypoglycemia, unspecified; Z66 Do not resuscitate; I48.91 Unspecified atrial fibrillation; Y83.8 Other surgical procedures as the cause of abnormal reaction of the patient, or of later complication, without mention of misadventure at the time of the procedure; Z51.5 Encounter for palliative care; Z87.891 Personal history of nicotine dependence; G89.29 Other chronic pain; Z99.2 Dependence on renal dialysis; Z87.11 Personal history of peptic ulcer disease; Z86.010 Personal history of colon polyps; Z80.8 Family history of malignant neoplasm of other organs or systems; Z79.891 Long term (current) use of opiate analgesic
CPT/HCPCS: 36415; 36600; 74241; 77001; J3490; J7620; S0074; 36556; 71045; 71250; 74176; 76937; 80047; 80048; 80053; 81001; 82140; 82330; 82533; 82570; 82803; 82947; 82962; 83605; 83690; 83735; 84100; 84132; 84295; 84300; 84478; 85014; 85018; 85025; 85610; 86704; 86706; 86850; 86900; 86923; 87040; 87070; 87077; 87081; 87086; 87186; 87205; 87340; 93005; 93306; 94002; 94003; 94150; 94640; 94660; G0378; J0153; J0171; J0610; J0690; J1100; J1170; J1644; J1940; J2020; J2250; J2405; J2543; J2704; J2710; J3010; J3480; J7070; P9045; P9047; Q9967; C1751; C1781; C9113; J0282; J0330; J1200; J1450; J1642; J1720; J2270; J2370; J3475; J7030; J7040; J7050; J7060; J7120; P9012; P9016; P9017; P9035